=== PATIENT | male | born 1960 | race Caucasian/White ===

== ENCOUNTER 2020-06-14 07:54 | Outpatient (REF) | payer OTHER, SELFPAY | END 2020-06-14 07:55 | disposition home or self-care (01) | LOC: HO.BBR 07:54 | PROVIDERS: Visit Provider Specialist | DX: Z13.89 Encounter for screening for other disorder (principal) ==

== ENCOUNTER 2020-09-14 13:27 | Outpatient (REF) | payer OTHER, SELFPAY | END 2020-09-14 13:28 | disposition home or self-care (01) | LOC: HO.BBR 13:27 | PROVIDERS: Visit Provider Specialist | DX: Z13.89 Encounter for screening for other disorder (principal) ==

== ENCOUNTER 2020-12-05 08:07 | Outpatient (REF) | payer OTHER, SELFPAY | END 2020-12-05 08:08 | disposition home or self-care (01) | LOC: HO.BBR 08:07 | PROVIDERS: Visit Provider Specialist | DX: Z13.89 Encounter for screening for other disorder (principal) ==

== ENCOUNTER 2021-06-20 10:47 | Outpatient (REF) | payer OTHER, SELFPAY | END 2021-06-20 10:48 | disposition home or self-care (01) | LOC: HO.BBR 10:47 | PROVIDERS: Visit Provider Specialist | DX: Z13.89 Encounter for screening for other disorder (principal) ==

== ENCOUNTER 2022-05-06 13:15 | Outpatient (REF) | payer OTHER, SELFPAY | END 2022-05-06 13:16 | disposition home or self-care (01) | LOC: HO.BBR 13:15 | PROVIDERS: Visit Provider Specialist | DX: Z13.89 Encounter for screening for other disorder (principal) ==

== ENCOUNTER 2022-12-18 08:03 | Outpatient (REF) | payer BC, SELFPAY | END 2022-12-18 08:04 | disposition home or self-care (01) | LOC: HO.BBR 08:03 | PROVIDERS: Visit Provider Specialist | DX: Z13.89 Encounter for screening for other disorder (principal) ==

== ENCOUNTER 2023-08-25 13:54 | Outpatient (REF) | payer BC, SELFPAY | END 2023-08-25 13:55 | disposition home or self-care (01) | LOC: HO.BBR 13:54 | PROVIDERS: Visit Provider Student in an Organized Health Care Education/Training Program | DX: Z13.89 Encounter for screening for other disorder (principal) ==

== ENCOUNTER 2024-01-25 11:49 | Outpatient (REF) | payer BC, SELFPAY | END 2024-01-25 11:50 | disposition home or self-care (01) | LOC: HO.BBR 11:49 | PROVIDERS: Visit Provider Specialist | DX: Z13.89 Encounter for screening for other disorder (principal) ==

== ENCOUNTER 2024-05-30 11:56 | Outpatient (REF) | payer BC, SELFPAY ==
--- OUTSIDE RECORDS SUMMARY | 2024-05-30 12:00 | XMS_ITS ---
Author Name [facility] Organization Unknown Results Test Name/Text Value Interpretation Date Range Source ALBUMIN 3.7g/dL Normal [id number] 3.4 - 5 [facility] SODIUM 141mmol/L Normal [id number] 136 - 145 [facility] GLUCOSE 113mg/dL Above high normal [id number] 74 - 100 [facility] BUN 14mg/dL Normal 7 - 18 [facility] CALCIUM 8.9mg/dL Normal [id number] 8.5 - 10.1 [facility] BILIRUBIN,TOTAL 0.5mg/dL Normal 0.2 - 1 [facility] CHL[facility] 110mmol/L Above high normal [id number] 98 - 107 [facility] POTASSIUM SERUM 4.3mmol/L Normal [id number] 3.5 - 5.1 C [facility] CO2 27mmol/L Normal [id number] 21 - 32 [facility] ALKALINE PHOSPHATASE 85U/L Normal [id number] 50 - 1 36 [facility] AST (SGOT) 9U/L Below low normal [id number] 15 - 37 [facility] GLOBULIN 3.2g/dL Normal [id number] 2.4 - 4.2 [facility] A/G RATIO 1.2g/dL Normal [facility] ALT (SGPT) 34U/L Normal [id number] 12 - 78 [facility] BUN/CREAT.RATIO 14.3 Normal [id number] C [facility] CREATININE 0.98mg/dL Normal 0.55 - 1.3 [facility]H PROTEIN, TOTAL 6.9g/dL Normal [id number] 6.4 - 8.2 CT [facility] GFRE 83 Normal 60 - [facility] FERRITIN 45ng/mL Normal [id number] 26 - 388 [facility] LDH 171U/L Normal [id number] 87 - 241 [facility] WBC 5.1K/uL Normal [id number] 3.7 - 10.3 [facility] ABSOLUTE GRANULOCYTES 3K/uL Normal [id number] 2.2 - 7.3 [facility] ABSOLUTE BASO 0.1K/uL Normal [id number] 0 - 0.2 [facility] IMMATURE GRANULOCYTES 0% Normal [id number] 0 - 0 .45 [facility] NUCLEATED RBC 0% Normal [id number] 0 - 0.2 [facility] MCH 33PG Normal [id number] 27 - 34 [facility] MONOCYTES 8% Normal [id number] 0 - 12 [facility] ABSOLUTE IMMATURE GRANULOCYTES 0K/uL Normal [id number] 0 - 0.3 [facility] HGB 16.3g/dL Normal [id number] 13.5 - 18 [facility] RBC 4.88M/uL Normal [id number] 4.3 - 6 [facility] EOSINOPHILS 3% Normal [id number] 0 - 6 [facility] MMH MPV 10fL Normal [id number] 8 - 12 [facility] ABSOLUTE MONOS 0.4K/uL Normal [id number] 0.2 - 1.5 CT [facility] BASOPHILS 1% Normal [id number] 0 - 2 [facility] MCV 93fL Normal [id number] 83 - 102 [facility] HCT 45.4% Normal [id number] 40 - 52 [facility] ABSOLUTE LYMPHS 1.5K/uL Normal [id number] 1.5 - 4.9 C [facility] GRANULOCYTES 59% Normal [id number] 23 - 78 [facility] ABSOLUTE EOS 0.1K/uL Normal [id number] 0 - 0.7 [facility] LYMPHS 29% Normal [id number] 16 - 50 [facility] RDW 12.3% Normal [id number] 11.1 - 13.3 [facility] PLATELET COUNT 192K/uL Normal [id number] 150 - 480 [facility] MCHC 35.9g/dL Normal [id number] 31 - 36 [facility] ABSOLUTE NUCLEATED RBC 0K/uL Normal [id number] 0 - 0.012 [facility] PATIENT FASTING? NO Normal [id number] [facility] COMMENT * Normal [id number] [facility] Hgb A1c MFr Bld HPLC 4.8% Normal [id number] - 5.7 [facility] DIFFERENTIAL TYPE AUTOMATED Normal [id number] [facility] NEUTROPHILS NFR BLD AUTO 36.7% Below low normal [id number] 44 - 74 [facility] BASOPHILS NFR BLD AUTO 1.4% Normal [id number] 0 - 2 [facility] MONOCYTES NFR BLD AUTO 6.6% Normal [id number] 2 - 12 [facility] HCT VFR BLD AUTO 46.5% Normal [id number] 40 - 54 [facility] MONOCYTES NO. BLD AUTO 0.2K/uL Normal [id number] 0 - 0.8 [facility] RDW RBC AUTO RTO 13.1% Normal [id number] 12.1 - 17. 7 [facility] PLATELET NO. BLD AUTO 201K/uL Normal [id number] 150 - 450 [facility] EOSINOPHIL NO. BLD AUTO 0.2K/uL Normal [id number] 0 - 0.5 [facility] RBC NO. BLD AUTO 4.88M/uL Normal [id number] 4.7 - 6 [facility] MCH RBC QN AUTO 34.2pg Above high normal [id number] 25 - 33 [facility] MCHC RBC AUTO MCNC 35.9g/dL Normal [id number] 32 - 36 [facility] HGB BLD MCNC 16.7g/dL Normal [id number] 13.5 - 18 [facility] BASOPHILS IN BLOOD BY AUTOMATED COUNT 0.1K/uL Normal [id number] 0 - 0.2 [facility] WBC NO. BLD AUTO 3.8K/uL Below low normal [id number] 4 - 10.5 [facility] EOSINOPHIL NFR BLD AUTO 6% Normal [id number] 0 - 6 [facility] LYMPHOCYTES NFR BLD AUTO 49.3% Above high normal [id number] 20 - 48 [facility] MCV RBC AUTO 95.3fL Normal [id number] 78 - 100 [facility] NEUTROPHILS NO. BLD AUTO 1.4K/uL Below low normal [id number] 1.8 - 7.8 [facility] LYMPHOCYTES NO. BLD AUTO 1.9K/uL Normal [id number] 1 - 3.2 [facility] PMV BLD AUTO 8.8fL Normal [id number] 7.4 - 11.4 [facility] TSH SerPl DL<=0.005 mIU/L-aCnc 0.67uIU/mL Normal [id number] 0.45 - 5.33 [facility] PSA SERPL-MCNC 1.9ng/mL Normal [id number] 0 - 4 [facility] LDLc SerPl Calc-mCnc 77mg/dL Normal [id number] 50 - 1 30 [facility] TRIGL SERPL-MCNC 138mg/dL Normal [id number] - 150 [facility] CHOLEST SERPL-MCNC 167mg/dL Normal [id number] 0 - 200 [facility] HDLC SERPL-MCNC 62mg/dL Normal [id number] 32 - 70 [facility] CREAT SERPL MCNC 0.8mg/dL Normal [id number] 0.7 - 1.3 [facility] BILIRUB SERPL MCNC 0.6mg/dL Normal [id number] 0.3 - 1 [facility] AST SERPL CCNC 11U/L Normal [id number] 5 - 40 [facility] Glomerular filtration rate/1.73 sq M. predicted 101 Normal [id number] 60 - [facility] HCO3 SER SCNC 31mmol/L Normal [id number] 24 - 32 [facility] POTASSIUM SERPL SCNC 4.1mmol/L Normal [id number] 3.5 - 5.1 [facility] ANION GAP SERPL SCNC 9mmol/L Normal [id number] 5 - 14 [facility] PROT SERPL MCNC 6.8g/dL Normal [id number] 6.4 - 8.5 C [facility] CALCIUM SERPL MCNC 9.2mg/dL Normal [id number] 8.4 - 10 .2 [facility] ALP SERPL-CCNC 87U/L Normal [id number] 34 - 104 [facility] SODIUM SERPL SCNC 142mmol/L Normal [id number] 135 - 145 [facility] GLUCOSE SERPL MCNC 76mg/dL Normal [id number] 70 - 199 [facility] ALBUMIN SERPL BCG MCNC 4.6g/dL Normal [id number] 3.5 - 5 [facility] CHLORIDE SERPL SCNC 102mmol/L Normal [id number] 98 - 10 7 [facility] ALT SERPL CCNC 25U/L Normal [id number] 7 - 52 [facility] BUN SERPL MCNC 9mg/dL Normal [id number] 9 - 20 [facility] URATE SERPL MCNC 5.4mg/dL Normal [id number] 3.5 - 8.5 [facility] FERRITIN 144ng/mL Normal [id number] 26 - 388 [facility] WBC 4.1K/uL Normal [id number] 3.7 - 10.3 [facility] MH ABSOLUTE GRANULOCYTES 1.8K/uL Below low normal [id number] 2.2 - 7.3 [facility] ABSOLUTE BASO 0K/uL Normal [id number] 0 - 0.2 [facility] IMMATURE GRANULOCYTES 0% Normal [id number] 0 - 0 .45 [facility] NUCLEATED RBC 0% Normal [id number] 0 - 0.2 [facility] MCH 34PG Normal [id number] 27 - 34 [facility] H MONOCYTES 14% Above high normal [id number] 0 - 12 [facility] ABSOLUTE IMMATURE GRANULOCYTES 0K/uL Normal [id number] 0 - 0.3 [facility] HGB 16.8g/dL Normal [id number] 13.5 - 18 [facility] RBC 4.92M/uL Normal [id number] 4.3 - 6 [facility] EOSINOPHILS 3% Normal [id number] 0 - 6 [facility] MMH MPV 10fL Normal [id number] 8 - 12 [facility] ABSOLUTE MONOS 0.6K/uL Normal [id number] 0.2 - 1.5 CT [facility] BASOPHILS 1% Normal [id number] 0 - 2 [facility] MCV 93fL Normal [id number] 83 - 102 [facility] HCT 45.5% Normal [id number] 40 - 52 [facility] ABSOLUTE LYMPHS 1.6K/uL Normal [id number] 1.5 - 4.9 C [facility] GRANULOCYTES 45% Normal [id number] 23 - 78 [facility] ABSOLUTE EOS 0.1K/uL Normal 0 - 0.7 [facility] LYMPHS 38% Normal 16 - 50 [facility] RDW 12.1% Normal 11.1 - 13.3 [facility] MMH PLATELET COUNT 192K/uL Normal 150 - [address] [facility] MCHC 36.9g/dL Above high normal 31 - 36 [facility] ABSOLUTE NUCLEATED RBC 0K/uL Normal 0 - 0.012 [facility] COMMENT * Normal [facility] H FERRITIN 89ng/mL Normal 26 - 388 [facility] WBC 5.1K/uL Normal 3.7 - 10.3 [facility] MH ABSOLUTE GRANULOCYTES 2.5K/uL Normal 2.2 - 7.3 [facility] ABSOLUTE BASO 0.1K/uL Normal 0 - 0.2 [facility] IMMATURE GRANULOCYTES 0% Normal 0 - 0 .45 [facility] NUCLEATED RBC 0% Normal 0 - 0.2 [facility] MCH 34PG Normal 27 - 34 [facility] H MONOCYTES 8% Normal 0 - 12 [facility] ABSOLUTE IMMATURE GRANULOCYTES 0K/uL Normal 0 - 0.3 [facility] HGB 16.8g/dL Normal 13.5 - 18 [facility] RBC 4.94M/uL Normal 4.3 - 6 [facility] EOSINOPHILS 4% Normal 0 - 6 [facility] MMH MPV 10fL Normal 8 - 12 [facility] ABSOLUTE MONOS 0.4K/uL Normal 0.2 - 1.5 CT [facility] BASOPHILS 1% Normal 0 - 2 [facility] MCV 92fL Normal 83 - 102 [facility] HCT 45.4% Normal 40 - 52 [facility] ABSOLUTE LYMPHS 1.9K/uL Normal 1.5 - 4.9 C [facility] GRANULOCYTES 50% Normal 23 - 78 [facility] ABSOLUTE EOS 0.2K/uL Normal 0 - 0.7 [facility] LYMPHS 37% Normal 16 - 50 [facility] RDW 12.3% Normal 11.1 - 13.3 [facility] MMH PLATELET COUNT 197K/uL Normal 150 - 480 [facility] MCHC 37g/dL Above high normal 31 - 36 [facility] ABSOLUTE NUCLEATED RBC 0K/uL Normal 0 - 0.012 [facility] COMMENT * Normal [facility] History of Medication Use Medication Directions Dispensed Refills Start Date End Date Stat Multiple Vitamins-Minerals (MULTIVITAMIN GUMMIES MENS PO) Multivitamins CAPS Refills: 0 Active 01/30/2024 active sildenafil (VIAGRA) 100 MG tablet TAKE ONE TABLET BY MOUTH ONE HOUR PRIOR TO SEXUAL ACTIVITY ON AN EMPTY STOMACH FOR ERECTILE DYSFUNCTION DIRECTED 01/30/2024 active Influenza Vac Split Quad (FLUZONE, FLUARIX, FLULAVAL, AFLURIA QUADRIVALENT) 0.5 ML injection Fluzone Quad (PF) 60 mcg (15 mcg x 4)/0.5 mL IM syringe PHARMACY ADMINISTERED 10/08/2023 active tadalafil (CIALIS) 5 mg tablet TAKE ONE TABLET BY MOUTH ONCE DAILY NEEDED FOR ERECTILE DYSFUNCTION 02/08/2023 active Cholecalciferol (VITAMIN D3) 2000 UNITS Cap capsule Vitamin D3 50 mcg (2,000 unit) capsule Take by oral route. 05/08/2022 active Influenza Vac Split Quad (FLUZONE, FLUARIX, FLULAVAL, AFLURIA QUADRIVALENT) 0.5 ML injection Fluzone Quad (PF) 60 mcg (15 mcg x 4)/0.5 mL IM syringe PHARMACY ADMINISTERED 11/28/2022 active sildenafil (VIAGRA) 100 MG tablet Take 1 tablet (100 mg total) by mouth daily as needed for erectile dysfunction. Take 1 hour prior to sexual activity on an empty stomach 05/08/2022 aborted diazepam (VALIUM) 5 MG tablet diazepam 5 mg tablet 05/08/2022 active testosterone (ANDROGEL) 20.25 mg/pump (1.62%) transdermal gel Place 2 Pump on the skin every morning. Max Daily Amount: 2 Pump 09/11/2022 aborted sildenafil (VIAGRA) 100 MG tablet TAKE ONE TABLET BY MOUTH ONE HOUR PRIOR TO SEXUAL ACTIVITY ON AN EMPTY STOMACH FOR ERECTILE DYSFUNCTION DIRECTED 06/05/2023 active cetirizine (ZyrTEC) 10 MG tablet every 24 hours. 05/08/2022 active Testosterone 1.62 % Gel PLACE 2 PUMPS ON THE SKIN EVERY MORNING. MAX DAILY AMOUNT : 2 PUMPS 03/07/2023 active tadalafil (CIALIS) 5 mg tablet Take 1 tablet (5 mg total) by mouth daily as needed for erectile dysfunction. 05/08/2022 aborted Influenza Vac Split Quad (FLUZONE, FLUARIX, FLULAVAL, AFLURIA QUADRIVALENT) 0.5 ML injection Fluzone Quad (PF) 60 mcg (15 mcg x 4)/0.5 mL IM syringe PHARMACY ADMINISTERED 02/08/2023 active sildenafil (REVATIO) 20 MG tablet sildenafil (pulmonary hypertension) 20 mg tablet Take 3 tablets by mouth one hour prior to sex as needed. 05/08/2022 active Multiple Vitamins-Minerals (Multivitamin Men 50+) Tab Take by mouth. 08/17/2022 active albuterol (PROVENTIL HFA; VENTOLIN HFA) 108 (90 Base) MCG/ACT inhaler Ventolin HFA 90 mcg/actuation aerosol inhaler 05/08/2022 active Influenza Vac Split Quad (FLUZONE, FLUARIX, FLULAVAL, AFLURIA QUADRIVALENT) 0.5 ML injection Fluzone Quad (PF) 60 mcg (15 mcg x 4)/0.5 mL IM syringe PHARMACY ADMINISTERED 05/08/2022 active Problems Problem Status Onset Date Problem Type Date of Resolution Source Hypogonadism in male active EncounterDiagnosisA ct [facility] Perennial allergic rhinitis active 2020-05-29 ProblemAct [facility] Primary erectile dysfunction active 2020-05-29 ProblemAct [facility] Anxiety active 2021-06-13 ProblemAct [facility] Hemochromatosis active 2008-09-[address] [facility] Immunizations Vaccine Date Source Lot Number Status Influenza Quad (Flucelvax) 0 .5mL >6mon Vial (ccIIV4) 06/13/2021 [facility] [id number] completed
== END 2024-05-30 11:57 | disposition home or self-care (01) ==
LOC: HO.BBR 11:56
PROVIDERS: Visit Provider Specialist
DX: Z13.89 Encounter for screening for other disorder (principal)

== ENCOUNTER 2024-08-29 11:47 | Outpatient (REF) | payer BC, SELFPAY | END 2024-08-29 11:48 | disposition home or self-care (01) | LOC: HO.BBR 11:47 | PROVIDERS: Visit Provider Specialist | DX: Z13.89 Encounter for screening for other disorder (principal) ==

== ENCOUNTER 2025-04-03 13:44 | Outpatient (REF) | payer BC, SELFPAY ==
--- OUTSIDE RECORDS SUMMARY | 2025-04-03 17:25 | XMS_ITS | Encounter Summary ---
Author Organization Formerly [facility] Address [address] [place] [address] Care Team Providers Care Mixer Whipped Topping Name Role Phone Morro Sanchez MD Primary Care Provider [phone] Encounter Details Date Type Department Care Team (Late Contact Info) Description 05/31/2024 Scanned Document [facility] Urologic Surgery [place] [phone] Bart Connell MD [address] [place] [address] Social History Tobacco Use Types Packs/Day Years Used Date Smoking Tobacco: Never Smokeless Tobacco: Never Alcohol Use Standard Drinks/Week Comments Yes 0 (1 standard drink = 0.6 oz pur e alcohol) Occasional Sex and Gender Information Value Date Recorded Sex Assigned at Male 10/12/2023 8:57 AM EDT Legal Sex Male 2:50 AM EDT Gender Identity Male 10/12/2023 8:57 AM EDT Sexual Orientation Heterosexual (straight) 10/11 8:57 AM EDT documented as of this encounter Plan of Treatment Upcoming Encounters Date Type Department Care Team (Late Contact Info) Description 10/19/2025 2:45 PM EDT Office Visit [facility] Urolog[facility] Surgery [address] [phone] Bart Connell MD [address] [place] [address] documented as of this encounter Visit Diagnoses Not on filedocumented in this encounter Care Teams Mixer Whipped Topping Relationship Specialty Start Date End Date Morro Sanchez MD [address] [place] [phone] PCP - General Internal Medicine 04/24/21 documented as of this encounter
--- OUTSIDE RECORDS SUMMARY | 2025-04-03 17:25 | XMS_ITS | Clinical Summary ---
Author Organization [facility] Address [address] [place] [address] Care Team Providers Care Pipe Bowl Paint Trimmer Name Role Phone Morro Sanchez MD Primary Care Provider [phone] Allergies Active Allergy Reactions Criticality Noted Date Comments Pollen Extract Medium 01/21/2022 Other reaction(s): Unknown/Patient and Family Unable to Define Seasonal 01/21/2022 Medications Medication Sig Dispensed Refills Start Date End Date Status GLUCOSAMINE CHONDROITIN COMPLX PO Glucosamine Chondroitin Complx Oral Capsule Refills: 0 Active 0 Active Multiple Vitamins-Minerals (MULTIVITAMIN GUMMIES MENS PO) Multivitamins CAPS Refills: 0 Active 0 Active sildenafil (VIAGRA) 100 MG tablet TAKE ONE TABLET BY MOUTH ONE HOUR PRIOR TO SEXUAL ACTIVITY ON AN EMPTY STOMACH FOR ERECTILE DYSFUNCTION DIRECTED 0 08/08/2022 Active Active Problems Problem Noted Date Diagnosed Date Post-traumatic osteoarthritis of right knee 08/06 Anxiety 06/13/2021 Primary erectile dysfunction 05/29/2020 Perennial allergic rhinitis 05/29/2020 Hemochromatosis 09/03/2008 Immunizations Name Administration Dates Next Due Covid-19 (Moderna 12+) 100mc g/0.5mL dosage 11/26/2021,05/03/2021,09/18/2020,08/21 Influenza Quad (Fluarix/Fluzone/FluLaval) 0.5mL (SD-IIV4) 03/01/2020 Influenza Quad (Flublok) 0.5 mL >18 Yrs (RIV4) 04/14/2019 Influenza Quad (Flucelvax) 0 .5mL >6mon Vial (ccIIV4) 06/13/2021 Pneumococcal Polysaccharide PPSV23 08/21/2015 Shingrix Vaccine (Zoster Recombinant) 07/30/2020 ,05/29/2020 Tdap 08/24/2023,05/11/2014 Family History Medical History Relation Name Comments Colon cancer Mother Relation Name Status Comments Mother Social History Tobacco Use Types Packs/Day Years Used Date Smoking Tobacco: Never Smokeless Tobacco: Never Tobacco Cessation:Counseling Given: Not Answered Alcohol Use Standard Drinks/Week Comments Yes 0 (1 standard drink = 0.6 oz pur e alcohol) moderatly Sex and Gender Information Value Date Recorded Sex Assigned at Not on file Gender Identity Not on file Sexual Orientation Not on file Job Start Date Occupation Industry Not on file Not on file Not on file Last Filed Vital Signs Vital Sign Reading Time Taken Comments Blood Pressure 120/82 09/03/2022 10:02 AM EDT Pulse 78 08/24/2023 2:13 PM EDT Temperature 36.3 C (97.4 F) 01/21/2022 1:26 PM EDT Respiratory Rate 16 08/24/2023 2:13 PM EDT Oxygen Saturation 95% 08/24/2023 2:13 PM EDT Inhaled Oxygen Concentration - - Weight 85.8 kg (189 lb 3.2 oz) 08/24/2023 2:13 P M EDT Height 188 cm (6' 2 ) 08/24/2023 2:13 PM EDT Body Mass Index 24.29 08/24/2023 2:13 PM EDT Plan of Treatment Health Maintenance Due Date Last Done Comments Colon Cancer Screening (Colonoscopy) 10/27/2007 BMI Counseling 08/23/2024 08/24/2023, 08/06, 08/19/2022, Additional history exists Depression Screening 08/23/2024 08/24/2023 Preventative Health Evaluation 08/23/2024 08/24/2023, 08/24/2023, 08/19/2022, Additional history exists COVID-19 Vaccine ( season) 2025 11/26/2021, 05/03/2021, 09/18/2020, Additional history exists Influenza Vaccine (#1) 2025 2, 03/01/2020, 04/14/2019 DTap / Tdap / Td (3 - Td or Tdap) 08/23/2033 08/24/2023, 05/11/2014 RSV Adult > 60+ Yrs or (1 - 1-dose 75+ series) 2037 Pneumococcal Vaccine Aged Out 08/21/2015 No long er eligible based on patient's age to complete this topic Hepatitis C Screening Completed 12/12/2016 Shingrix-Zoster Vaccine Completed 07/30/2020, 05/29 Hepatitis B Vaccines Aged Out No long er eligible based on patient's age to complete this topic RSV Ped < 20 months Aged Out No longe r eligible based on patient's age to complete this topic Care Teams Pipe Bowl Paint Trimmer Relationship Specialty Start Date End Date Morro Sanchez MD [address] [facility] [address] [facility] [place] [address] PCP - General Family Medicine 02/03/17
--- OUTSIDE RECORDS SUMMARY | 2025-04-03 17:25 | XMS_ITS | Clinical Summary ---
Author Organization [facility] Address [address] [place] [address] Phone Care Team Providers Care Fisher Trammel Net Name Role Phone Morro Sanchez MD Primary Care Provider [phone] Allergies Active Allergy Reactions Criticality Noted Date Comments Pollen Extracts 01/21/2022 Medications glucosamine HCl/chondroiti n gunderson (GLUCOSAMINE-C HONDROITIN ORAL) Glucosamine Chondroitin Complx Oral Capsule Refills: 0 Active Active MULTIVITAMIN ORAL Multivitamins CAPS Refills: 0 Active Active Active Problems Problem Noted Date Diagnosed Date Anxiety 06/13/2021 Perennial allergic rhinitis 05/29/2020 Primary erectile dysfunction 05/29/2020 Hemochromatosis 09/03/2008 Immunizations Immunization Administration Dates Next Due Influenza Quadravalent, MDCK , 0.5ml, with preservative (Flucelvax) 6mo and older 06/13/2021 Influenza Quadravalent, arianna mbinant, 0.5ml, preservative free (Flublok) 18yo and older 04/14/2019 Pneumococcal polysaccharide 23 valent (Pneumovax 23) 2yo and older 08/21/2015 Tdap Tetanus diptheria acell ular pertussis (Boostrix; Adacel) 7yo and older 05/11/2014 Zoster recombinant (Shingrix) 19yo and older ,05/29/2020 Surgical History Surgery Date Site/Laterality Comments KNEE SURGERY PROCEDURE:KNEE SURGERY Medical History Medical History Date Comments Hemochromatosis DX:Hemochromatos is Family History Medical History Relation Name Comments Colon cancer Mother Relation Name Status Comments Mother Social History Tobacco Use Types Packs/Day Years Used Date Smoking Tobacco: Never Smokeless Tobacco: Never Alcohol Use Standard Drinks/Week Comments Yes 0 (1 standard drink = 0.6 oz pur e alcohol) Sex and Gender Information Value Date Recorded Sex Assigned at Not on file Legal Sex Male 11:37 AM EST Gender Identity Not on file Sexual Orientation Not on file Obstetrics History Last Filed Vital Signs Vital Sign Reading Time Taken Comments Blood Pressure 120/82 09/03/2022 10:02 AM EDT Pulse 78 08/24/2023 2:13 PM EDT Temperature - - Respiratory Rate - - Oxygen Saturation - - Inhaled Oxygen Concentration - - Weight 85.8 kg (189 lb 3.2 oz) 08/24/2023 2:13 P M EDT Height 188 cm (6' 2 ) 08/24/2023 2:13 PM EDT Body Mass Index 24.29 08/24/2023 2:13 PM EDT Plan of Treatment Health Maintenance Due Date Last Done Comments Colorectal Cancer Screening: Colonoscopy 1962 Pneumococcal Vaccine: 50+ Years (2 of 2 - PCV) 08/20/2016 08/21/2015 HIV Screening 05/16/2022 Social Influencers of Health Screening 05/16/2022 Depression Screening 06/08/2024 Influenza Vaccine (#1) 2025 , 02/07/2023, 05/09/2022, Additional history exists Hypertension/CHF/CAD Annual BMP Blood Test 08/18/2025 08/18/2024, 08/17/2023, 08/11/2022, Additional history exists Cholesterol Screening (Lipid Panel) 08/18/2029 08/18/2024, 08/17/2023, 08/11/2022, Additional history exists DTaP,Tdap,and Td Vaccines (4 - Td or Tdap) 08/23/2033 08/24/2023, 02/07/2023, 05/11/2014 Hepatitis C Screening Completed 12/12/2016 Zoster Vaccines Completed 07/30/2020, 05/29/2020 RSV Immunization Adult Patients Completed 04/09/2023 COVID-19 Vaccine Completed 02/06/2024, 02/2023, 02/20/2022, Additional history exists HIB Vaccines Aged Out No longer eligi ble based on patient's age to complete this topic HPV Vaccines Aged Out No longer eligi ble based on patient's age to complete this topic Hepatitis A Vaccines Aged Out No long er eligible based on patient's age to complete this topic Hepatitis B Vaccines Aged Out No long er eligible based on patient's age to complete this topic IPV Vaccines Aged Out No longer eligi ble based on patient's age to complete this topic MMR Vaccines Aged Out No longer eligi ble based on patient's age to complete this topic Meningococcal ACWY Vaccine Aged Out N o longer eligible based on patient's age to complete this topic Meningococcal B Vaccine Aged Out No l onger eligible based on patient's age to complete this topic RSV Immunization Patients Under 20 months Aged Out No longer eligible based on patient's age to complete this topic Varicella Vaccines Aged Out No longer eligible based on patient's age to complete this topic Procedures Procedure Name Priority Date/Time Associated Diagnosis Comments COMPREHENSIVE METABOLIC PANEL Routine 08/18/2024 7:25 AM EDT Routine general medical examination at a [facility] LIPID PANEL WITH REFLEX TO DIRECT LDL Routine 08/18/2024 7:25 AM EDT Routine general medical examination at a [facility] HEPATITIS C SCREENING Routine 12/12/2016 from Last 3 Months or Most Recently Relevant to Health Maintenance Results * Lipid panel with reflex to direct LDL (08/18/2024 7:25 AM EDT) Cholesterol 170 0 - 200 mg/dL LAB CHEMISTRY METHOD 08/18/2024 2:50 PM EDT [facility] Triglycerides 81 <150 mg/dL LAB CHEMISTRY METHOD 08/18/2024 2:50 PM EDT [facility] HDL 68 32 - 70 mg/dL LAB CHEMISTRY METHOD 08/18/2024 2:50 PM EDT [facility] LDL Calculated 86 50 - 130 mg/dL LAB CHEMISTRY METHOD 08/18/2024 2:50 PM EDT [facility] VLDL Cholesterol [place] 16.2 mg/dL LAB CHEMISTRY METHOD 08/18/2024 2:50 PM EDT [facility] Comment:No established refer ence range. Blood Venous blood specimen / Unknown Venipuncture / Unknown 08/18/2024 7:25 AM EDT 08/18/2024 7:25 AM EDT us Morro Sanchez MD LAB BLOOD ORDERABLES Final Res ult [facility] [address] [place] [address], [place] [phone] * Comprehensive metabolic panel (08/18/2024 7:25 AM EDT) Sodium 140 135 - 145 mmol/L LAB CHEMISTRY METHOD 08/18/2024 2:50 PM EDT [facility] Potassium 4.5 3.5 - 5.1 mmol/L LAB CHEMISTRY METHOD 08/18/2024 2:50 PM EDT [facility] Chloride 102 98 - 107 mmol/L LAB CHEMISTRY METHOD 08/18/2024 2:50 PM EDT [facility] CO2 30 24 - 32 mmol/L LAB CHEMISTRY METHOD 08/18/2024 2:50 PM EDT [facility] Anion Gap 8 5 - 14 LAB CHEMISTRY METHOD 08/18/2024 2:50 PM EDT [facility] Glucose 92 70 - 99 mg/dL LAB CHEMISTRY METHOD 08/18/2024 2:50 PM EDT [facility] BUN 11 9 - 20 mg/dL LAB CHEMISTRY METHOD 08/18/2024 2:50 PM EDT [facility] Creatinine 0.90 0.70 - 1.30 mg/dL LAB CHEMISTRY METHOD 08/18/2024 2:50 PM EDT [facility] eGFR 97 >=60 mL/min/1. 73m2 LAB CHEMISTRY METHOD 08/18/2024 2:50 PM EDT [facility] Comment:Calculation based on the Chronic Kidney Disease Epidemiology Collaboration (CKD-EPI) equation refit without adjustment for race. BUN/Creatinine Ratio 12.2 12.0 - 20.0 LAB CHEMISTRY METHOD 08/18/2024 2:50 PM EDT [facility] Calcium 9.7 8.4 - 10.2 mg/dL LAB CHEMISTRY METHOD 08/18/2024 2:50 PM EDT [facility] AST (SGOT) 11 5 - 40 unit/L LAB CHEMISTRY METHOD 08/18/2024 2:50 PM EDT [facility] ALT (SGPT) 20 7 - 52 unit/L LAB CHEMISTRY METHOD 08/18/2024 2:50 PM EDT [facility] Alkaline Phosphatase 79 34 - 104 unit/L LAB CHEMISTRY METHOD 08/18/2024 2:50 PM EDT [facility] Total Protein 6.4 6.4 - 8.5 g/dL LAB CHEMISTRY METHOD 08/18/2024 2:50 PM EDT [facility] Albumin 4.5 3.5 - 5.0 g/dL LAB CHEMISTRY METHOD 08/18/2024 2:50 PM EDT [facility] Total Bilirubin 0.8 0.3 - 1.0 mg/dL LAB CHEMISTRY METHOD 08/18/2024 2:50 PM EDT [facility] Blood Venous blood specimen / Unknown Venipuncture / Unknown 08/18/2024 7:25 AM EDT 08/18/2024 7:25 AM EDT Morro Sanchez MD LAB BLOOD ORDERABLES Final Res ult [facility] [address] [place] [address], [place] [phone] * Hepatitis C Screening (12/12/2016) Hepatitis C Screening abstracted Historical Provider HEALTH MAINTENANCE Final Result from Last 3 Months or Most Recently Relevant to Health Maintenance Insurance [facility] Care Teams Fisher Trammel Net Relationship Specialty Start Date End Date Morro Sanchez MD PCP - General Family Medicine 02/03/17
--- OUTSIDE RECORDS SUMMARY | 2025-04-03 17:25 | XMS_ITS | Encounter Summary ---
Author Organization [facility] Address [address] [place] [address] Care Team Providers Care Tc Operator Name Role Phone Morro Sanchez MD Primary Care Provider [phone] Encounter Details Date Type Department Care Team (Late Contact Info) Description 03/27/2025 Scanned Document [facility] [id number] [address] [place] [phone] Urology, Scan Social History Tobacco Use Types Packs/Day Years [...] Description 10/19/2025 2:45 PM EDT Office Visit [facility] Urologic Surgery [place] [address] [phone] Bart Connell MD [address] [place] [address] documented as of this encounter Visit Diagnoses Not on filedocumented in this encounter Care Teams Tc Operator Relationship Specialty Start Date End Date Morro Sanchez MD [address] [place] [address] PCP - General Internal Medicine 04/24/21 documented as of this encounter
--- OUTSIDE RECORDS SUMMARY | 2025-04-03 17:25 | XMS_ITS | Clinical Summary ---
Author Organization [facility] Address [address] [place] [address] Care Team Providers Care Zigzag Topstitcher Name Role Phone Morro Sanchez MD Unavailable [phone] Morro Sanchez MD Primary Care Provider [phone] Allergies No known active allergies Medications multivit with minerals/lutei n (MULTIVITAMIN 50 PLUS ORAL) Multivitamins CAPS Refills: 0 Active Active glucosamine-ch ondroitin 500-400 mg tablet Glucosamine Chondroitin Complx Oral Capsule Refills: 0 Active Active Active Problems No known active problems Family History Medical History Relation Comments Parkinsonism Father Relation Status Comments Father Social History Tobacco Use Types Packs/Day Years Used Date Smoking Tobacco: Never Smokeless Tobacco: Never Tobacco Cessation:Counseling Given: Not Answered Alcohol Use Standard Drinks/Week Comments Yes 4 (1 standard drink = 0.6 oz pur e alcohol) Sex and Gender Information Value Date Recorded Sex Assigned at Not on file Legal Sex Male 10:24 AM EST Gender Identity Not on file Sexual Orientation Not on file Last Filed Vital Signs Vital Sign Reading Time Taken Comments Blood Pressure 151/101 10/17/2024 1:06 PM EDT Pulse 71 10/17/2024 1:06 PM EDT Temperature - - Respiratory Rate 16 10/17/2024 1:06 PM EDT Oxygen Saturation 98% 10/17/2024 1:06 PM EDT Inhaled Oxygen Concentration - - Weight 87.1 kg (192 lb) 05/24/2024 2:20 PM EST Height 188 cm (6' 2 ) 05/24/2024 2:20 PM EST Body Mass Index 24.65 05/24/2024 2:20 PM EST Plan of Treatment Health Maintenance Due Date Last Done Comments CT Colonography 1962 Colonoscopy 1962 Colorectal Cancer Screening 1962 FIT-DNA (Cologuard) 1962 FIT 1962 FOBT 1962 Flex Sigmoidoscopy - 5y 1962 HIV Screening 1962 Hepatitis C Screening 1980 Pneumococcal Vaccine, 50+ Years (2 of 2 - PCV) 08/20/2016 08/21/2015 Influenza Vaccine (#1) 2025 , 02/07/2023, 05/09/2022, Additional history exists DTaP,Tdap,and Td Vaccines (4 - Td or Tdap) 08/23/2033 08/24/2023, 02/07/2023, 05/11/2014 Zoster Vaccines Completed 07/30/2020, 05/29/2020 COVID-19 Vaccine Completed 02/06/2024, 02/2023, 02/20/2022, Additional history exists HPV Vaccines Aged Out No longer eligi ble based on patient's age to complete this topic Hepatitis A Vaccines Aged Out No long er eligible based on patient's age to complete this topic MMR Vaccines Aged Out No longer eligi ble based on patient's age to complete this topic Meningococcal Vaccine Aged Out No key daivd eligible based on patient's age to complete this topic Insurance [employer] INSURANCE EXCHANGE - INDIVIDUAL Care Teams Zigzag Topstitcher Relationship Specialty Start Date End Date Morro Sanchez MD [address] [place] [phone] PCP - Insurance Payer PCP 06/08/23 Morro Sanchez MD [address] [place] [phone] PCP - General Family Medicine 05/24/24
--- OUTSIDE RECORDS SUMMARY | 2025-04-03 17:25 | XMS_ITS | Encounter Summary ---
Author Organization [facility] Address [address] [place] [address] Care Team Providers Care Residential Specialist Name Role Phone Morro Sanchez MD Primary Care Provider [phone] Encounter Details Date Type Department Care Team (Late Contact Info) Description 10/20/2024 Scanned Document [facility] Urologic Surgery [place] [phone] Bart Connell MD [address] [place] [address] Social History Tobacco Use Types Packs/Day Years [...] Description 10/19/2025 2:45 PM EDT Office Visit [facility]rolog[facility] Surgery [address] [phone] Bart Connell MD [address] [place] [address] documented as of this encounter Visit Diagnoses Not on filedocumented in this encounter Care Teams Residential Specialist Relationship Specialty Start Date End Date Morro Sanchez MD [address] [place] [phone] PCP - General Internal Medicine 04/24/21 documented as of this encounter
--- OUTSIDE RECORDS SUMMARY | 2025-04-03 17:25 | XMS_ITS | Clinical Summary ---
Author Organization [facility] Address [address] [place] [address] Care Team Providers Care Gui Developer Name Role Phone Morro Sanchez MD Primary Care Provider [phone] Allergies Active Allergy Reactions Criticality Noted Date Comments Pollen Extract Unknown/Patient and Family Unable to Define Medium 01/21/2022 Medications albuterol (PROVENTIL HFA; VENTOLIN HFA) 108 (90 Base) MCG/ACT inhaler Ventolin HFA 90 mcg/actuation aerosol inhaler Active cetirizine (ZyrTEC) 10 MG tablet every 24 hours. Acti ve Cholecalciferol (VITAMIN D3) 2000 UNITS Cap capsule Vitamin D3 50 mcg (2,000 unit) capsule Take by oral route. Active Influenza Vac Split Quad (FLUZONE, FLUARIX, FLULAVAL, AFLURIA QUADRIVALENT) 0.5 ML injection Fluzone Quad (PF) 60 mcg (15 mcg x 4)/0.5 mL IM syringe PHARMACY ADMINISTERED Active diazepam (VALIUM) 5 MG tablet diazepam 5 mg tablet Active Glucosamine-Cho ndroit-Vit C-Mn (Glucosamine Chondr 1500 Complx) Cap Take by mouth. 2 Active Multiple Vitamins-Minera ls (Multivitamin Men 50+) Tab Take by mouth. 2 Active Testosterone 1.62 % GelIndications: Hypogonadism in male PLACE 2 PUMPS ON THE SKIN EVERY MORNING. MAX DAILY AMOUNT : 2 PUMPS 75 g 5 5 Active tadalafil (CIALIS) 5 mg tabletIndicatio ns:Erectile dysfunction due to diseases classified elsewhere TAKE ONE TABLET BY MOUTH EVERY DAY NEEDED FOR ERECTILE DYSFUNCTION 90 tablet 3 5 Active Active Problems No known active problems Encounters Date Type Department Care Team Description 03/27/2025 Scanned Document [facility] [id number] [address] [place] [address], [place] [phone] Urology, Scan 03/13/2025 Telephone [facility] Urologic Surgery [address] [phone] Bart Connell MD 01/24/2025 Telephone [facility] Urologic Surgery [address] [phone] Bart Connell MD 01/23/2025 [facility] Urologic Surgery [address] [phone] Bart Connell MD Other 01/09/2025 Refill [facility] Urologic Surgery [address] [phone] Bart Connell MD Erectile dysfunction due to diseases classified elsewhere from Last 3 Months Social History Tobacco Use Types Packs/Day Years [...] Orientation Heterosexual (straight) 10/11 8:57 AM EDT Last Filed Vital Signs Vital Sign Reading Time Taken Comments Blood Pressure - - Pulse - - Temperature 36.7 C (98 F) 10/09/2021 8:10 AM EDT Respiratory Rate - - Oxygen Saturation - - Inhaled Oxygen Concentration - - Weight 81.6 kg (180 lb) 10/13/2024 2:17 PM EDT Height 188 cm (6' 2 ) 10/13/2024 2:17 PM EDT Body Mass Index 23.11 10/13/2024 2:17 PM EDT Plan of Treatment Upcoming Encounters Date Type Department Care Team (Late st Contact Info) Description 10/19/2025 2:45 PM EDT Office Visit [facility] Urologic Surgery [address] [place] [address] [place] [phone] Bart Connell MD [address] [place] [address] Health Maintenance Due Date Last Done Comments Hepatitis C Virus Screening 1962 HIV Screening 10/27/1975 DTaP/Tdap/Td Vaccines (1 - Tdap) 1981 Colonoscopy 10/27/2007 Pneumococcal Vaccines 50+ (1 of 1 - PCV) 2012 Zoster (Shingles) Vaccine (1 of 2) 2012 Influenza Vaccine 01/06/2025 02/06/2024, , 05/09/2022, Additional history exists RSV Vaccine 50 years and older and Patients (1 - 1-dose 75+ series) 2037 COVID-19 Vaccine Completed 02/06/2024, 02/2023, 02/20/2022, Additional history exists Hepatitis B Vaccines Aged Out No long er eligible based on patient's age to complete this topic Insurance [employer] INDIVIDUAL EXCHANGE PPO BLUE [employer] INDIVIDUAL EXCHANGE PPO Care Teams Gui Developer Relationship Specialty Start Date End Date Morro Sanchez MD [address] [place] [address] PCP - General Internal Medicine 04/24/21
--- OUTSIDE RECORDS SUMMARY | 2025-04-03 17:25 | XMS_ITS ---
Author Name [facility] Organization Unknown Results Test Name/Text Value Interpretation Date Range Source [facility]ost SerPl-mCnc 656.0 ng/dL 11/20/2024 250 - 11 00 [facility] SerPl-sCnc 50.0 nmol/L 11/20/2024 22 - 77 Q [facility] Bioavail SerPl-mCnc 138.1 ng/dL 11/20/2024 110 - 575 [facility] Albumin SerPl-mCnc 4.8 g/dL 11/20/2024 3.6 - 5.1 [facility] Free SerPl-mCnc 63.1 pg/mL 11/20/2024 46 - 224 [facility] CALCIUM 8.9 mg/dL Normal 12/01/2023 8.5 - 10.1 [facility] AST (SGOT) 9.0 U/L Below low normal 12/01/2023 15 - 37 C [facility] GLOBULIN 3.2 g/dL Normal 12/01/2023 2.4 - 4.2 [facility] BILIRUBIN,TOTAL 0.5 mg/dL Normal 12/01/2023 0.2 - 1 [facility] POTASSIUM SERUM 4.3 mmol/L Normal 12/01/2023 3.5 - 5.1 [facility] BUN 14.0 mg/dL Normal 12/01/2023 7 - 18 [facility] PROTEIN, TOTAL 6.9 g/dL Normal 12/01/2023 6.4 - 8.2 [facility] CREATININE 0.98 mg/dL Normal 12/01/2023 0.55 - 1.3 [facility] ALT (SGPT) 34.0 U/L Normal 12/01/2023 12 - 78 [facility] SODIUM 141.0 mmol/L Normal 12/01/2023 136 - 145 [facility] A/G RATIO 1.2 g/dL Normal 12/01/2023 [facility] BUN/CREAT.RATIO 14.3 Normal 12/01/2023 [facility] CO2 27.0 mmol/L Normal 12/01/2023 21 - 32 [facility] ALBUMIN 3.7 g/dL Normal 12/01/2023 3.4 - 5 [facility] ALKALINE PHOSPHATASE 85.0 U/L Normal 12/01/2023 50 - 136 [facility] CHLORIDE 110.0 mmol/L Above high normal 12/01/2023 98 - 107 [facility] GLUCOSE 113.0 mg/dL Above high normal 12/01/2023 74 - 100 [facility] PATIENT FASTING? NO Normal 12/01/2023 [facility] LDH 171.0 U/L Normal 12/01/2023 87 - 241 [facility] FERRITIN 45.0 ng/mL Normal 12/01/2023 26 - 388 [facility] GFRE 83.0 Normal 12/01/2023 60 - [facility] ABSOLUTE MONOS 0.4 K/uL Normal 12/01/2023 0.2 - 1.5 [facility] ABSOLUTE LYMPHS 1.5 K/uL Normal 12/01/2023 1.5 - 4.9 [facility] MPV 10.0 fL Normal 12/01/2023 8 - 12 [facility] HGB 16.3 g/dL Normal 12/01/2023 13.5 - 18 [facility] MCH 33.0 PG Normal 12/01/2023 27 - 34 [facility] ABSOLUTE NUCLEATED RBC 0.0 K/uL Normal 12/01/2023 0 - 0. 012 [facility] GRANULOCYTES 59.0 % Normal 12/01/2023 23 - 78 [facility] BASOPHILS 1.0 % Normal 12/01/2023 0 - 2 [facility] WBC 5.1 K/uL Normal 12/01/2023 3.7 - 10.3 [facility] ABSOLUTE GRANULOCYTES 3.0 K/uL Normal 12/01/2023 2.2 - 7 .3 [facility] ABSOLUTE IMMATURE GRANULOCYTES 0.0 K/uL Normal 12/01/2023 0 - 0.3 [facility] MCV 93.0 fL Normal 12/01/2023 83 - 102 [facility] LYMPHS 29.0 % Normal 12/01/2023 16 - 50 [facility] RBC 4.88 M/uL Normal 12/01/2023 4.3 - 6 [facility] NUCLEATED RBC 0.0 % Normal 12/01/2023 0 - 0.2 [facility]H IMMATURE GRANULOCYTES 0.0 % Normal 12/01/2023 0 - 0.4 5 [facility] ABSOLUTE EOS 0.1 K/uL Normal 12/01/2023 0 - 0.7 [facility] PLATELET COUNT 192.0 K/uL Normal 12/01/2023 150 - 480 [facility] EOSINOPHILS 3.0 % Normal 12/01/2023 0 - 6 [facility] HCT 45.4 % Normal 12/01/2023 40 - 52 [facility] ABSOLUTE BASO 0.1 K/uL Normal 12/01/2023 0 - 0.2 [facility]H MONOCYTES 8.0 % Normal 12/01/2023 0 - 12 [facility] RDW 12.3 % Normal 12/01/2023 11.1 - 13.3 [facility] MCHC 35.9 g/dL Normal 12/01/2023 31 - 36 [facility] COMMENT * Normal 12/01/2023 [facility] URATE SERPL MCNC 5.4 mg/dL Normal 08/17/2023 3.5 - 8.5 [facility] TSH SerPl DL<=0.005 mIU/L-aCnc 0.67 uIU/mL Normal 08/17/2023 0.45 - 5.33 [facility] Hgb A1c MFr Bld HPLC 4.8 % Normal 08/18/2023 - 5.7 [facility] CHOLEST SERPL-MCNC 167.0 mg/dL Normal 08/17/2023 0 - 200 [facility] LDLc SerPl Calc-mCnc 77.0 mg/dL Normal 08/17/2023 50 - 13 0 [facility] TRIGL SERPL-MCNC 138.0 mg/dL Normal 08/17/2023 - 150 [facility] HDLC SERPL-MCNC 62.0 mg/dL Normal 08/17/2023 32 - 70 [facility] PSA SERPL-MCNC 1.9 ng/mL Normal 08/17/2023 0 - 4 [facility] MONOCYTES NO. BLD AUTO 0.2 K/uL Normal 08/17/2023 0 - 0. 8 [facility] HCT VFR BLD AUTO 46.5 % Normal 08/17/2023 40 - 54 [facility] PLATELET NO. BLD AUTO 201.0 K/uL Normal 08/17/2023 150 - 450 [facility] LYMPHOCYTES NFR BLD AUTO 49.3 % Above high normal 08/17/2023 20 - 48 [facility] NEUTROPHILS NO. BLD AUTO 1.4 K/uL Below low normal 08/17/2023 1.8 - 7.8 [facility] EOSINOPHIL NO. BLD AUTO 0.2 K/uL Normal 08/17/2023 0 - 0.5 [facility] MCHC RBC AUTO MCNC 35.9 g/dL Normal 08/17/2023 32 - 36 [facility] EOSINOPHIL NFR BLD AUTO 6.0 % Normal 08/17/2023 0 - 6 [facility] BASOPHILS IN BLOOD BY AUTOMATED COUNT 0.1 K/uL Normal 08/17/2023 0 - 0.2 [facility] RDW RBC AUTO RTO 13.1 % Normal 08/17/2023 12.1 - 17.7 [facility] RBC NO. BLD AUTO 4.88 M/uL Normal 08/17/2023 4.7 - 6 [facility] MCV RBC AUTO 95.3 fL Normal 08/17/2023 78 - 100 [facility] MG DIFFERENTIAL TYPE AUTOMATED Normal 08/17/2023 C [facility] WBC NO. BLD AUTO 3.8 K/uL Below low normal 08/17/2023 4 - 1 0.5 [facility] MCH RBC QN AUTO 34.2 pg Above high normal 08/17/2023 25 - 33 [facility] MONOCYTES NFR BLD AUTO 6.6 % Normal 08/17/2023 2 - 12 [facility] NEUTROPHILS NFR BLD AUTO 36.7 % Below low normal 08/17/2023 44 - 74 [facility] PMV BLD AUTO 8.8 fL Normal 08/17/2023 7.4 - 11.4 [facility]G BASOPHILS NFR BLD AUTO 1.4 % Normal 08/17/2023 0 - 2 [facility] LYMPHOCYTES NO. BLD AUTO 1.9 K/uL Normal 08/17/2023 1 - 3.2 [facility] HGB BLD MCNC 16.7 g/dL Normal 08/17/2023 13.5 - 18 [facility] MG AST SERPL CCNC 11.0 U/L Normal 08/17/2023 5 - 40 [facility] CHLORIDE SERPL SCNC 102.0 mmol/L Normal 08/17/2023 98 - 1 07 [facility] HCO3 SER SCNC 31.0 mmol/L Normal 08/17/2023 24 - 32 [facility] POTASSIUM SERPL SCNC 4.1 mmol/L Normal 08/17/2023 3.5 - 5 .1 [facility] CALCIUM SERPL MCNC 9.2 mg/dL Normal 08/17/2023 8.4 - 10.2 [facility] PROT SERPL MCNC 6.8 g/dL Normal 08/17/2023 6.4 - 8.5 [facility] BILIRUB SERPL MCNC 0.6 mg/dL Normal 08/17/2023 0.3 - 1 [facility] Glomerular filtration rate/1.73 sq M. predicted 101.0 Normal 08/17/2023 60 - [facility] CREAT SERPL MCNC 0.8 mg/dL Normal 08/17/2023 0.7 - 1.3 [facility] ANION GAP SERPL SCNC 9.0 mmol/L Normal 08/17/2023 5 - 14 [facility] ALT SERPL CCNC 25.0 U/L Normal 08/17/2023 7 - 52 [facility] BUN SERPL MCNC 9.0 mg/dL Normal 08/17/2023 9 - 20 [facility] ALBUMIN SERPL BCG MCNC 4.6 g/dL Normal 08/17/2023 3.5 - 5 [facility] GLUCOSE SERPL MCNC 76.0 mg/dL Normal 08/17/2023 70 - 199 [facility] SODIUM SERPL SCNC 142.0 mmol/L Normal 08/17/2023 135 - 14 5 [facility] ALP SERPL-CCNC 87.0 U/L Normal 08/17/2023 34 - 104 [facility] FERRITIN 144.0 ng/mL Normal 08/13/2023 26 - 388 [facility] PLATELET COUNT 192.0 K/uL Normal 08/13/2023 150 - 480 [facility] EOSINOPHILS 3.0 % Normal 08/13/2023 0 - 6 [facility] LYMPHS 38.0 % Normal 08/13/2023 16 - 50 [facility] HGB 16.8 g/dL Normal 08/13/2023 13.5 - 18 [facility] MONOCYTES 14.0 % Above high normal 08/13/2023 0 - 12 C [facility] ABSOLUTE GRANULOCYTES 1.8 K/uL Below low normal 08/13/2023 2.2 - 7.3 [facility] ABSOLUTE NUCLEATED RBC 0.0 K/uL Normal 08/13/2023 0 - 0. 012 [facility] ABSOLUTE BASO 0.0 K/uL Normal 08/13/2023 0 - 0.2 [facility] MMH RBC 4.92 M/uL Normal 08/13/2023 4.3 - 6 [facility] NUCLEATED RBC 0.0 % Normal 08/13/2023 0 - 0.2 [facility] MMH MCHC 36.9 g/dL Above high normal 08/13/2023 31 - 36 C [facility] HCT 45.5 % Normal 08/13/2023 40 - 52 [facility] MCV 93.0 fL Normal 08/13/2023 83 - 102 [facility] GRANULOCYTES 45.0 % Normal 08/13/2023 23 - 78 [facility] ABSOLUTE EOS 0.1 K/uL Normal 08/13/2023 0 - 0.7 [facility] RDW 12.1 % Normal 08/13/2023 11.1 - 13.3 [facility] MPV 10.0 fL Normal 08/13/2023 8 - 12 [facility] WBC 4.1 K/uL Normal 08/13/2023 3.7 - 10.3 [facility] MCH 34.0 PG Normal 08/13/2023 27 - 34 [facility] BASOPHILS 1.0 % Normal 08/13/2023 0 - 2 [facility] ABSOLUTE LYMPHS 1.6 K/uL Normal 08/13/2023 1.5 - 4.9 [facility] ABSOLUTE MONOS 0.6 K/uL Normal 08/13/2023 0.2 - 1.5 [facility] IMMATURE GRANULOCYTES 0.0 % Normal 08/13/2023 0 - 0.4 5 [facility] ABSOLUTE IMMATURE GRANULOCYTES 0.0 K/uL Normal 08/13/2023 0 - 0.3 [facility] COMMENT * Normal 08/13/2023 [facility] FERRITIN 89.0 ng/mL Normal 05/09/2023 26 - 388 [facility] ABSOLUTE BASO 0.1 K/uL Normal 05/08/2023 0 - 0.2 [facility] MMH IMMATURE GRANULOCYTES 0.0 % Normal 05/08/2023 0 - 0.4 5 [facility] GRANULOCYTES 50.0 % Normal 05/08/2023 23 - 78 [facility] ABSOLUTE IMMATURE GRANULOCYTES 0.0 K/uL Normal 05/08/2023 0 - 0.3 [facility] BASOPHILS 1.0 % Normal 05/08/2023 0 - 2 [facility] RDW 12.3 % Normal 05/08/2023 11.1 - 13.3 [facility] NUCLEATED RBC 0.0 % Normal 05/08/2023 0 - 0.2 [facility] MMH HGB 16.8 g/dL Normal 05/08/2023 13.5 - 18 [facility] ABSOLUTE EOS 0.2 K/uL Normal 05/08/2023 0 - 0.7 [facility] RBC 4.94 M/uL Normal 05/08/2023 4.3 - 6 [facility] HCT 45.4 % Normal 05/08/2023 40 - 52 [facility] MONOCYTES 8.0 % Normal 05/08/2023 0 - 12 [facility] MCV 92.0 fL Normal 05/08/2023 83 - 102 [facility] ABSOLUTE MONOS 0.4 K/uL Normal 05/08/2023 0.2 - 1.5 [facility] MCHC 37.0 g/dL Above high normal 05/08/2023 31 - 36 C [facility] ABSOLUTE NUCLEATED RBC 0.0 K/uL Normal 05/08/2023 0 - 0. 012 [facility] LYMPHS 37.0 % Normal 05/08/2023 16 - 50 [facility] PLATELET COUNT 197.0 K/uL Normal 05/08/2023 150 - 480 [facility] EOSINOPHILS 4.0 % Normal 05/08/2023 0 - 6 [facility] ABSOLUTE LYMPHS 1.9 K/uL Normal 05/08/2023 1.5 - 4.9 [facility] MPV 10.0 fL Normal 05/08/2023 8 - 12 [facility] ABSOLUTE GRANULOCYTES 2.5 K/uL Normal 05/08/2023 2.2 - 7 .3 [facility] MCH 34.0 PG Normal 05/08/2023 27 - 34 [facility] WBC 5.1 K/uL Normal 05/08/2023 3.7 - 10.3 [facility] COMMENT * [facility] of Medication Use Medication Directions Dispensed Refills Start Date End Date [facility] sildenafil (VIAGRA) 100 MG tablet TAKE ONE TABLET BY MOUTH ONE HOUR PRIOR TO SEXUAL ACTIVITY ON AN EMPTY STOMACH FOR ERECTILE DYSFUNCTION DIRECTED 06/02/2023 4 active Testosterone 1.62 % Gel PLACE 2 PUMPS ON THE SKIN EVERY MORNING. MAX DAILY AMOUNT : 2 PUMPS 03/05/2023 5 active tadalafil (CIALIS) 5 mg tablet TAKE ONE TABLET BY MOUTH ONCE DAILY NEEDED FOR ERECTILE DYSFUNCTION 02/06/2023 4 active testosterone (ANDROGEL) 20.25 mg/pump (1.62%) transdermal gel Place 2 Pump on the skin every morning. Max Daily Amount: 2 Pump 09/09/2022 3 active sildenafil (VIAGRA) 100 MG tablet TAKE ONE TABLET BY MOUTH ONE HOUR PRIOR TO SEXUAL ACTIVITY ON AN EMPTY STOMACH FOR ERECTILE DYSFUNCTION DIRECTED 08/08/2022 active sildenafil (VIAGRA) 100 MG tablet Take 1 tablet (100 mg total) by mouth daily as needed for erectile dysfunction. Take 1 hour prior to sexual activity on an empty stomach 05/07/2022 3 aborted Multiple Vitamins-Minerals (Multivitamin Men 50+) Tab Take by mouth. 10/18/2021 active tadalafil (CIALIS) 5 mg tablet TAKE ONE TABLET BY MOUTH EVERY DAY NEEDED FOR ERECTILE DYSFUNCTION 06/11/2021 5 active sildenafil 100 mg tablet TAKE ONE TABLET BY MOUTH ONE HOUR PRIOR TO SEXUAL ACTIVITY ON AN EMPTY STOMACH FOR ERECTILE DYSFUNCTION DIRECTED 5 completed tadalafil 5 mg tablet TAKE ONE TABLET BY MOUTH EVERY DAY NEEDED FOR ERECTILE DYSFUNCTION 5 completed sildenafil (REVATIO) 20 MG tablet sildenafil (pulmonary hypertension) 20 mg tablet Take 3 tablets by mouth one hour prior to sex as needed. 4 active testosterone 20.25 mg/1.25 gram per pump act.(1.62 %) transdermal gel APPLY 2 PUMPS TO THE SKIN EVERY MORNING . MAX 2 PUMPS DAILY active albuterol (PROVENTIL HFA; VENTOLIN HFA) 108 (90 Base) MCG/ACT inhaler Ventolin HFA 90 mcg/actuation aerosol inhaler active cetirizine (ZyrTEC) 10 MG tablet every 24 hours. active Cholecalciferol (VITAMIN D3) 2000 UNITS Cap capsule Vitamin D3 50 mcg (2,000 unit) capsule Take by oral route. active diazepam (VALIUM) 5 MG tablet diazepam 5 mg tablet active GLUCOSAMINE CHONDROITIN COMPLX PO Glucosamine Chondroitin Complx Oral Capsule Refills: 0 Active active glucosamine-chondroi tin 500-400 mg tablet Glucosamine Chondroitin Complx Oral Capsule Refills: 0 Active active Influenza Vac Split Quad (FLUZONE, FLUARIX, FLULAVAL, AFLURIA QUADRIVALENT) 0.5 ML injection Fluzone Quad (PF) 60 mcg (15 mcg x 4)/0.5 mL IM syringe PHARMACY ADMINISTERED active Influenza Vac Split Quad (FLUZONE, FLUARIX, FLULAVAL, AFLURIA QUADRIVALENT) 0.5 ML injection Fluzone Quad (PF) 60 mcg (15 mcg x 4)/0.5 mL IM syringe PHARMACY ADMINISTERED active Influenza Vac Split Quad (FLUZONE, FLUARIX, FLULAVAL, AFLURIA QUADRIVALENT) 0.5 ML injection Fluzone Quad (PF) 60 mcg (15 mcg x 4)/0.5 mL IM syringe PHARMACY ADMINISTERED active Influenza Vac Split Quad (FLUZONE, FLUARIX, FLULAVAL, AFLURIA QUADRIVALENT) 0.5 ML injection Fluzone Quad (PF) 60 mcg (15 mcg x 4)/0.5 mL IM syringe PHARMACY ADMINISTERED active multivit with minerals/lutein (MULTIVITAMIN 50 PLUS ORAL) Multivitamins CAPS Refills: 0 Active active Allergies Allergen Reaction Severity Comment Documented Date Source Statu s SEASONAL 01/21/2022 [facility] active POLLEN EXTRACT UNKNOWN/PATIENT AND FAMILY UNABLE TO DEFINE Other reaction(s): Unknown/Patie nt and Family Unable to Define [facility] SEASONALE (91) [facility] Problems Problem Status Onset Date Problem Type Date of Resolution Source Anxiety active 2021-06-13 ProblemAct [facility] Primary erectile dysfunction active 2020-05-29 ProblemAct [facility] Hemochromatosis active 2008-09-[address] [facility] Perennial allergic rhinitis active 2020-05-29 ProblemAct [facility] Left foot pain active EncounterDiagnosisAct [facility] Closed nondisplaced fracture of phalanx of left great toe with routine healing, unspecified phalanx, subsequent encounter active EncounterDiagnosisAct [facility] 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 active 2023-08-24 ProblemAct [facility] Hemochromatosis active 2008-09-03 ProblemAct EN [facility] Anxiety active 2021-06-13 ProblemAct [facility] Perennial allergic rhinitis active 2020-05-29 ProblemAct [facility] Bradycardia active 2024-11-07 ProblemAct [facility] Primary erectile dysfunction active 2020-05-29 ProblemAct [facility] Snoring active 2024-08-25 ProblemAct [facility] Immunizations Vaccine Date Source Lot Number Status Influenza, injectable, Madin Schaller Canine Kidney, preservative free 02/06/2024 [id number] comple artur SARS-COV-2 (COVID-19) vaccin e, mRNA, spike protein, LNP, preservative free, 50 mcg/0.5 mL dose 02/06/2024 [facility] [id number] completed tetanus toxoid, reduced diph theria toxoid, and acellular pertussis vaccine, adsorbed 08/24/2023 [facility] [id number] completed Respiratory syncytial virus (RSV), vaccine, recombinant, protein subunit RSV prefusion F, adjuvant reconstituted, 0.5 mL, preservative free 04/09/2023 [facility] [id number] completed SARS-COV-2 (COVID-19) vaccin e, mRNA, spike protein, LNP, preservative free, emile-sucrose, 30 mcg/0.3 mL dose 03/16/2023 [facility] [id number] completed Influenza, injectable, Madin Schaller Canine Kidney, preservative free, quadrivalent 02/07/2023 [facility] [id number] completed tetanus toxoid, reduced diph theria toxoid, and acellular pertussis vaccine, adsorbed 02/07/2023 [facility] [id number] completed Influenza, injectable, quadr ivalent, preservative free 05/09/2022 [facility] [id number] completed SARS-COV-2 (COVID-19) vaccin e, mRNA, spike protein, LNP, bivalent, preservative free, 50 mcg/0.5 mL dose 02/20/2022 [facility] [id number] completed SARS-COV-2 (COVID-19) vaccin e, mRNA, spike protein, LNP, preservative free, 100 mcg/0.5mL dose 11/26/2021 [facility] [id number] completed Influenza, injectable, Madin Kathy Canine Kidney, quadrivalent 06/13/2021 [facility] [id number] completed SARS-COV-2 (COVID-19) vaccin e, mRNA, spike protein, LNP, preservative free, 100 mcg/0.5mL dose 05/03/2021 [facility] [id number] completed SARS-COV-2 (COVID-19) vaccin e, mRNA, spike protein, LNP, preservative free, 100 mcg/0.5mL dose 09/18/2020 [facility] [id number] completed SARS-COV-2 (COVID-19) vaccin e, mRNA, spike protein, LNP, preservative free, 100 mcg/0.5mL dose 08/21/2020 [facility] [id number] completed zoster vaccine subunit 07/30/2020 [facility] [id number] co mpleted zoster vaccine subunit 05/29/2020 [facility] [id number] co mpleted Influenza, injectable, quadr ivalent, preservative free 03/01/2020 [facility] [id number] completed Seasonal, quadrIvalent, arianna mbinant, injectable influenza vaccine, preservative free 04/14/2019 [facility] [id number] completed pneumococcal polysaccharide vaccine, 23 valent 08/21/2015 [facility] completed tetanus toxoid, reduced diph theria toxoid, and acellular pertussis vaccine, adsorbed 05/11/2014 [facility] completed Encounters Encounter Type Encounter Reason Primary Diagnosis Location Date Ambulatory [facility]25 [facility]2025 [facility]2024 Ambulatory [facility] 11/28/2024 Ambulatory Pain in left foot Pain in left foot formerly [facility] 11/25/2024 Ambulatory Pain in left foot Pain in left foot formerly [facility] 11/25/2024 [facility]ulatory [facility] 11/15/2024 [facility] 11/07/2024 Ambulatory [facility] 10/17/2024 Ambulatory Displaced fracture of proximal phalanx o Displaced fracture of proximal phalanx of left great toe, initial encounter for closed fracture [facility] 10/17/2024 Ambulatory Erectile dysfunction due to diseases classified elsewhere Erectile dysfunction due to diseases classified elsewhere [facility] 10/13/2024 Ambulatory [facility] 09/08/2024 Ambulatory [facility] 08/25/2024 [facility]ulatory [facility] 08/25/2024 Ambulatory [facility] 08/25/2024 [facility] 08/25/2024 [facility]ulatory [facility] 08/17/2024 [facility]ulatory [facility] 08/17/2024 Ambulatory Pain in left shoulder Pain in left shoulder [facility] 05/24/2024 Ambulatory Impingement syndrome of left shoulder Impingement syndrome of left shoulder [facility] 05/24/2024 Ambulatory [facility] 12/01/2023 Ambulatory Erectile dysfunction due to diseases classified elsewhere Erectile dysfunction due to diseases classified elsewhere [employer] [facility] 10/14/2023 Ambulatory [facility] 08/13/2023 [facility] 05/08/2023 [facility] 12/03/2022 Ambulatory Erectile dysfunc tion due to diseases classified elsewhere [facility] 11/26/2022 [facility] 11/12/2022 Ambulatory Erectile dysfunc tion due to diseases classified elsewhere [facility] 08/27/2022 Ambulatory Scar conditions and fibrosis of skin [facility] 08/15/2022 Ambulatory Erectile dysfunc tion due to diseases classified elsewhere [facility] 05/07/2022 Ambulatory Benign prostatic hyperplasia with lower urinary tract symptoms [facility] 10/09/2021 Ambulatory Sebaceous cyst [facility] 09/06/2021 Ambulatory Benign prostatic hyperplasia with lower urinary tract symptoms [facility] 06/11/2021 Care Team Organization Name Specialty Phone Email Start Date End Da te [facility] 03/30/2025 [facility] Primary Care 03/27/2025 [facility] 10/19/[address] [facility] Primary Care 10/13/2024 11/11/2024 [facility] 08/25/2024 [facility] 08/17/2024 [facility] Primary Care 024 [facility] Primary Care 06/28/2023 12/27/2024 [facility] Primary Care 11/14/2022 01/25/2024 [facility] Primary Care 11/13/2022 12/28/19 25 [facility] Primary Care 11/12/2022 11/13/19 23 [facility] provided No Primary Care 08/07/2022 12/27/2024 [facility] 05/07/2022 025 [facility] Primary Care 04/15/2022 01/25/2024 [facility] No provided Primary Care 04/14/2022 022 [facility] 04/13/[address] [facility] Primary Care 09/06/2021 10/09/2021
--- OUTSIDE RECORDS SUMMARY | 2025-04-03 17:25 | XMS_ITS | Encounter Summary ---
Author Organization [facility] Address [address] [place] [address] Care Team Providers Care Tie Bucker Name Role Phone Morro Sanchez MD Primary Care Provider + [phone] Reason for Visit * Reason Comments Medication Refill Encounter Details Date Type Department Care Team (Late st Contact Info) Description 12/16/2023 Telephone [facility] [place] [address] [place] [address] Bart Connell MD [address] [place] [id number] Medication Refill Social History Tobacco Use Types Packs/Day Years [...] AM EDT documented as of this encounter Miscellaneous Notes * Telephone Encounter - Maral Fernandez LPN - 12/16/2023 11:46 AM EDT [facility] Verbal refill placed 07/07/09 inject 0.25 ml and titrate to effect 6 refills 10 ml bottle Ordering provider Dr. Bart Connell documented in this encounter Plan of Treatment Upcoming Encounters Date Type Department Care Team (Late st Contact Info) Description 10/19/2025 2:45 PM EDT Office Visit [facility] [address] [phone] Bart Connell MD [address] [place] [id number] documented as of this encounter Visit Diagnoses Not on filedocumented in this encounter Care Teams Tie Bucker Relationship Specialty Start Date End Date Morro Sanchez MD [address] [place] [phone] PCP - General Internal Medicine 04/24/21 documented as of this encounter
--- OUTSIDE RECORDS SUMMARY | 2025-04-03 17:25 | XMS_ITS | Encounter Summary ---
Author Organization [facility] Address [address] [place] [id number] Care Team Providers Care Plant Protection Supervisor Name Role Phone Morro Sanchez MD Primary Care Provider + [phone] Encounter Details Date Type Department Care Team (Late Contact Info) Description 07/14/2023 Scanned Document [facility] [place] [phone] Bart Connell MD [address] [place] [address] Social History Tobacco Use Types Packs/Day Years [...] Description 10/19/2025 2:45 PM EDT Office Visit [facility] [address] [phone] Bart Connell MD [address] [place] [address] documented as of this encounter Visit Diagnoses Not on filedocumented in this encounter Care Teams Plant Protection Supervisor Relationship Specialty Start Date End Date Morro Sanchez MD [address] [place] [phone] PCP - General Internal Medicine 04/24/21 documented as of this encounter
--- OUTSIDE RECORDS SUMMARY | 2025-04-03 17:25 | XMS_ITS | Encounter Summary ---
Author Organization [facility] Address [address] [place] [id number] Care Team Providers Care Ward Secretary Name Role Phone Morro Sanchez MD Primary Care Provider + [phone] Encounter Details Date Type Department Care Team (Late Contact Info) Description 12/05/2022 Scanned Document [facility] Urologic Surgery [address] [phone] Bart Connell MD [address] [place] [address] Social History Tobacco Use Types Packs/Day Years [...] Orientation Heterosexual (straight) 10/11 8:57 AM EDT COVID-19 Exposure Response Date Recorded In the last 10 days, have yo u been in contact with someone who was confirmed or suspected to have Coronavirus/COVID-19? No / Unsure 11/26/2022 2:59 PM EDT documented as of this encounter Plan of Treatment Upcoming Encounters Date Type Department Care Team (Late st Contact Info) Description 10/19/2025 2:45 PM EDT Office Visit [facility] Urologic [facility] [place] [phone] Bart Connell MD [address] [address] documented as of this encounter Visit Diagnoses Not on filedocumented in this encounter Care Teams Ward Secretary Relationship Specialty Start Date End Date Morro Sanchez MD [address] [place] [phone] PCP - General Internal Medicine 04/24/21 documented as of this encounter
--- OUTSIDE RECORDS SUMMARY | 2025-04-03 17:25 | XMS_ITS | Encounter Summary ---
Author Organization [facility] Address [address] [place] [id number] Care Team Providers Care Mainframe Architect Name Role Phone Morro Sanchez MD Primary Care Provider + [phone] Encounter Details Date Type Department Care Team (Late Contact Info) Description 12/08/2023 Scanned Document [facility] Urologic Surgery [place] [phone] Yordy Rogers MD [address] [facility] [address] [place] [address] Social History Tobacco Use Types Packs/Day Years [...] Description 10/19/2025 2:45 PM EDT Office Visit [facility] Urologic Surgery [address] [phone] Bart Connell MD [address] [place] [address] documented as of this encounter Visit Diagnoses Not on filedocumented in this encounter Care Teams Mainframe Architect Relationship Specialty Start Date End Date Morro Sanchez MD 1 [place] [phone] PCP - General Internal Medicine 04/24/21 documented as of this encounter
--- OUTSIDE RECORDS SUMMARY | 2025-04-03 17:25 | XMS_ITS | Clinical Summary ---
Author Organization [employer] Address [address] [facility] [address] [address] Care Team Providers Care Investment Consultant Name Role Phone Morro Sanchez MD Primary Care Provider [phone] Allergies Active Allergy Reactions Criticality Noted Date Comments No Known Drug Allergies Medications testosterone 20.25 mg/1.25 gram (1.62 %) glpm Place 2 pumps on the skin 3 Active glucosamine-cho ndroitin 500-400 mg tablet Glucosamine Chondroitin Complx Oral Capsule Refills: 0 Active Active multivitamin with minerals tablet Take by mouth 2 Active cetirizine (ZyrTEC) 10 MG tablet Take 1 tablet (10 mg total) by mouth daily Active Active Problems Problem Noted Date Diagnosed Date Hemochromatosis 09/03/2008 Social History Tobacco Use Types Packs/Day Years Used Date Smoking Tobacco: Never Smokeless Tobacco: Never Tobacco Cessation:Counseling Given: Yes Comments:Continue healthy life style Alcohol Use Standard Drinks/Week Comments Not Currently 0 (1 standard drink = 0.6 oz pur e alcohol) Sex and Gender Information Value Date Recorded Sex Assigned at Not on file Legal Sex Male 1:11 AM EDT Gender Identity Not on file Sexual Orientation Not on file Last Filed Vital Signs Vital Sign Reading Time Taken Comments Blood Pressure 116/76 10/21/2022 10:37 AM EDT Pulse 83 10/21/2022 10:37 AM EDT Temperature 36.7 C (98.1 F) 10/21/2022 10:37 AM EDT Respiratory Rate 18 05/09/2023 10:46 AM EST Oxygen Saturation 98% 10/21/2022 10:37 AM EDT Inhaled Oxygen Concentration - - Weight 83 kg (183 lb) 05/09/2023 10:46 AM EST Height 188 cm (6' 2 ) 05/09/2023 10:46 AM EST Body Mass Index 23.5 05/09/2023 10:46 AM EST Plan of Treatment Health Maintenance Due Date Last Done Comments Colorectal Cancer: COLONOS[place] PY Screening every 10 yrs (or Modifier) 1960 Depression: Screening Annual ly using PHQ-2/9 in Adults 18 yrs or above (or HM Modifier)([facility]) 1980 Hepatitis C Virus Infection in Adolescents and Adults: Screening (or Modifier) ([facility]) 1980 [facility] Screening Reminder: Tonia ually for all adults ([facility]) 1980 Colorectal Cancer Screening 45 -75 Yrs (or HM Modifier) 10/27/2007 Colorectal Cancer: FLEXIBLE SIGMOIDOSCOPY Screening every 5 yrs 10/27/2007 Colorectal Cancer: Fecal Immunochemical Test (FIT) Annually [facility] 10/27/2007 Colorectal Cancer: High-sensitivity gFOBT Screening Annually [facility] 10/27/2007 Colorectal Cancer: Stool Col oguard Screening every 3 yrs 10/27/2007 Colorectal Cancer:CT Colonog luis e Screening every 5 yrs 10/27/2007 Pneumococcal Vaccination Screening: Patients 50+ yrs of age ([facility]) (2 of 2 - PCV) 08/20/2016 08/21/2015 Flu Vaccination: Yearly for ages 18mos through 64 years (or Modifier)([facility]) 01/06/2025 03/01/2020, 04/14/2019, 04/14/2019 COVID-19 Vaccine Screening: Initial Series and Booster Status ([facility]) (2024- season) 2025 11/26/2021, 05/03/2021, 09/18/2020, Additional history exists DTaP/Tdap/Td Vaccines ([facility]) (3 - Td or Tdap) 08/23/2033 08/24/2023, 05/11/2014 RSV Vaccines (1 - 1-dose 75+ series) 2037 Pneumococcal Vaccination Screening: Pts 0-19 & 19-49 yrs of age ([facility]) Discontinued 08/21/2015 Zoster/Shingles Vaccine Seri es Screening: Adults aged 18+ yrs (or HM Modifiers)([facility]) Completed 07/30/2020, 05/29/2020 Medical Devices Not on file Insurance [facility] Care Teams Investment Consultant Relationship Specialty Start Date End Date Morro Sanchez MD [address] [facility] [place] [phone] PCP - General Family Medicine 10/03/19
--- OUTSIDE RECORDS SUMMARY | 2025-04-03 17:25 | XMS_ITS | Data Portability ---
Author Organization [place] [facility], [facility] ADMIN Address [address] [place] [address] Assessment Encounter Date Assessment Date Assessment LastModified by Organization Details LastModified Time 08/25/2024 08/25/2024 The patient presented today for an annual physical examination. Education was provided on healthy nutrition, including a diet rich in fruits and vegetables, minimizing simple carbohydrates, salt, and saturated fats. Encouraged regular cardiovascular exercise such as walking at least 30 minutes daily, 5 times per week. The patient was also advised to: . . . Not available 08/25/2024 13:28:01 Plan of Treatment Reminders Order Date Submit Date Provider Last Modified By Organization Details Last Modified Time Details Appointments PHYSICAL 40 2025 01:00P M Dr.Buckma bello Not available Not available Not available Lab CMP, serum or plasma 2024 026 [facility], [address] [place] [address], [address], 08/26/2024 17:36:37 CBC w/ auto diff 2024 026 [facility], [address] [place] [address], [address], 08/26/2024 17:36:37 TSH, serum or plasma 2024 026 [email or web address] [address] [facility], [address] [place] [address], [address], 08/26/2024 17:36:37 uric acid, serum or plasma 2024 026 [email or web address] [facility], [address] [place] [address], [address], 08/26/2024 17:36:37 HbA1c (hemoglo bin A1c), blood 2024 026 [email or web address] [facility], [address] [place] [address], [address], 08/26/2024 17:36:37 PSA, serum or plasma [email or web address] [facility], [address] [place] [address], [address], 08/26/2024 17:36:37 lipid panel w/ direct LDL, serum [address] [facility], [address] [place] [address], [address], 08/26/2024 17:36:37 urinalys is, dipstick [email or web address] [facility], [address] [place] [address], [address], 08/26/2024 17:36:37 Referral None recorded . Procedures holter monitor anne mariemen t (PROC) 2024 025 [email or web address] Not available 11/22/2024 16:22:02 Surgeries None recorded . Imaging home sleep study 2024 025 [facility], [address] [facility], [facility] [address], [place] [place], [address], 10/13/2024 10:23:29 Medication Orders None recorded . Patient TargetsNo targets recorded. Patient Instructions Encounter Date Encounter Id Patient Instructions Last Modified By Organization Details Last Modified Time 11/07/2024 [id number] will evaluate further with 7day heart monitor. samantha Not available 11/07/2024 14:22:23 Reason for Referral None Reported. Results Created Date Observation Date Name Description Value Unit Range Abnormal Flag Note LastModifiedBy Organization Detail LastModifiedTime 08/19/19 25 08/18/2024 CBC WITH AUTO DIFFE RENTI AL WBC 4.2 K/mcL 4.0-10 .5 Not Available [address], [address], 08/18/2024 18:53:03 08/19/19 25 08/18/2024 CBC WITH AUTO DIFFE RENTI AL RBC 5.20 M/mcL 4.70-6 .00 Not Available [address], [address], 08/18/2024 18:53:03 08/19/19 25 08/18/2024 CBC WITH AUTO DIFFE RENTI AL hemoglobin 16.9 g/dL 13.5-1 8.0 Not Available [address], [address], 08/18/2024 18:53:03 08/19/19 25 08/18/2024 CBC WITH AUTO DIFFE RENTI AL hematocrit 49.4 % 40.0-5 4.0 Not Available [address], [address], 08/18/2024 18:53:03 08/19/19 25 08/18/2024 CBC WITH AUTO DIFFE RENTI AL MCV 95.0 fL 78.0-1 00.0 Not Available [address], [address], 08/18/2024 18:53:03 08/19/19 25 08/18/2024 CBC WITH AUTO DIFFE RENTI AL MCH 32.6 pcg 25.0-3 3.0 Not Available [address], [address], 08/18/2024 18:53:03 08/19/19 25 08/18/2024 CBC WITH AUTO DIFFE RENTI AL MCHC 34.3 g/dL 32.0-3 6.0 Not Available [address], [address], 08/18/2024 18:53:03 08/19/19 25 08/18/2024 CBC WITH AUTO DIFFE RENTI AL RDW 12.5 % 12.1-1 7.7 Not Available [address], [address], 08/18/2024 18:53:03 08/19/19 25 08/18/2024 CBC WITH AUTO DIFFE RENTI AL platelets 185 K/mcL 150-45 0 Not Available [address], [address], 08/18/2024 18:53:03 08/19/19 25 08/18/2024 CBC WITH AUTO DIFFE RENTI AL MPV 9.9 fL 7.4-11 .4 Not Available [address], [address], 08/18/2024 18:53:03 08/19/19 25 08/18/2024 CBC WITH AUTO DIFFE RENTI AL neutrophils relative 49.1 % 44.0-7 4.0 Not Available [address], [address], 08/18/2024 18:53:03 08/19/19 25 08/18/2024 CBC WITH AUTO DIFFE RENTI AL lymphocytes relative 38.6 % 20.0-4 8.0 Not Available [address], [address], 08/18/2024 18:53:03 08/19/19 25 08/18/2024 CBC WITH AUTO DIFFE RENTI AL monocytes relative 6.8 % 2.0-12 .0 Not Available [address], [address], 08/18/2024 18:53:03 08/19/19 25 08/18/2024 CBC WITH AUTO DIFFE RENTI AL eosinophils relative 4.3 % 0.0-6. 0 Not Available [address], [address], 08/18/2024 18:53:03 08/19/19 25 08/18/2024 CBC WITH AUTO DIFFE RENTI AL basophils relative 1.2 % 0.0-2. 0 Not Available [address], [address], 08/18/2024 18:53:03 08/19/19 25 08/18/2024 CBC WITH AUTO DIFFE RENTI AL neutrophils absolute 2.00 K/mcL 1.80-7 .80 Not Available [address], [address], 08/18/2024 18:53:03 08/19/19 25 08/18/2024 CBC WITH AUTO DIFFE RENTI AL lymphocytes absolute 1.60 K/mcL 1.00-3 .20 Not Available [address], [address], 08/18/2024 18:53:03 08/19/19 25 08/18/2024 CBC WITH AUTO DIFFE RENTI AL monocytes absolute 0.30 K/mcL 0.00-0 .80 Not Available [address], [address], 08/18/2024 18:53:03 08/19/19 25 08/18/2024 CBC WITH AUTO DIFFE RENTI AL eosinophils absolute 0.20 K/mcL 0.00-0 .50 Not Available [address], [address], 08/18/2024 18:53:03 08/19/19 25 08/18/2024 CBC WITH AUTO DIFFE RENTI AL basophils absolute 0.10 K/mcL 0.00-0 .20 Not Available [address], [address], 08/18/2024 18:53:03 08/19/19 25 08/18/2024 CBC WITH AUTO DIFFE KYLIE AL note SEE REPORT Collsong jones [facility] [address] [place] [address] ord, Mary[place]ticu t [address] Not Available [address], [address], 08/18/2024 18:53:03 08/19/19 25 08/18/2024 URIC ACID uric acid 5.4 mg/dL 3.5-8. 5 Not Available [address], [address], 08/18/2024 19:02:44 08/19/19 25 08/18/2024 COMPR EHENS ELIZABETH METAB OLIC PANEL sodium 140 mmol/ L 135-14 5 Not Available [address], [address], 08/18/2024 19:02:48 08/19/19 25 08/18/2024 COMPR EHENS ELIZABETH METAB OLIC PANEL potassium 4.5 mmol/ L 3.5-5. 1 Not Available [address], [address], 08/18/2024 19:02:48 08/19/19 25 08/18/2024 COMPR EHENS ELIZABETH METAB OLIC PANEL chloride 102 mmol/ L 98-107 Not Available [address], [address], 08/18/2024 19:02:48 08/19/19 25 08/18/2024 COMPR EHENS ELIZABETH METAB OLIC PANEL CO2 30 mmol/ L 24-32 Not Available [address], [address], 08/18/2024 19:02:48 08/19/19 25 08/18/2024 COMPR EHENS ELIZABETH METAB OLIC PANEL anion gap 8 5-14 Not Available [address], [address], 08/18/2024 19:02:48 08/19/19 25 08/18/2024 COMPR EHENS ELIZABETH METAB OLIC PANEL glucose 92 mg/dL 70-99 Not Available [address], [address], 08/18/2024 19:02:48 08/19/19 25 08/18/2024 COMPR EHENS ELIZABETH METAB OLIC PANEL BUN 11 mg/dL 9-20 Not Available [address], [address], 08/18/2024 19:02:48 08/19/19 25 08/18/2024 COMPR EHENS ELIZABETH METAB OLIC PANEL creatinine 0.90 mg/dL 0.70-1 .30 Not Available [address], [address], 08/18/2024 19:02:48 08/19/19 25 08/18/2024 COMPR EHENS ELIZABETH METAB OLIC PANEL eGFR 97 mL/mi n/1.7 3m2 >=60 Calcu latio n based on the C hroni c Kidne y Disea se Epide miolo gy Colla borat ion (CKD- EPI) equat ion refit w ithou t adjus tment for race. Not Available [address], [address], 08/18/2024 19:02:48 08/19/19 25 08/18/2024 COMPR EHENS ELIZABETH METAB OLIC PANEL BUN/creatini ne ratio 12.2 12.0-2 0.0 Not Available [address], [address], 08/18/2024 19:02:48 08/19/19 25 08/18/2024 COMPR EHENS ELIZABETH METAB OLIC PANEL calcium 9.7 mg/dL 8.4-10 .2 Not Available [address], [address], 08/18/2024 19:02:48 08/19/19 25 08/18/2024 COMPR EHENS ELIZABETH METAB OLIC PANEL AST (SGOT) 11 unit/ L 5-40 Not Available [address], [address], 08/18/2024 19:02:48 08/19/19 25 08/18/2024 COMPR EHENS ELIZABETH METAB OLIC PANEL ALT (SGPT) 20 unit/ L 7-52 Not Available [address], [address], 08/18/2024 19:02:48 08/19/19 25 08/18/2024 COMPR EHENS ELIZABETH METAB OLIC PANEL alkaline phosphatase 79 unit/ L 34-104 Not Available [address], [address], 08/18/2024 19:02:48 08/19/19 25 08/18/2024 COMPR EHENS ELIZABETH METAB OLIC PANEL total protein 6.4 g/dL 6.4-8. 5 Not Available [address], [address], 08/18/2024 19:02:48 08/19/19 25 08/18/2024 COMPR EHENS ELIZABETH METAB OLIC PANEL albumin 4.5 g/dL 3.5-5. 0 Not Available [address], [address], 08/18/2024 19:02:48 08/19/19 25 08/18/2024 COMPR EHENS ELIZABETH METAB OLIC PANEL total bilirubin 0.8 mg/dL 0.3-1. 0 Not Available [address], [address], 08/18/2024 19:02:48 08/19/19 25 08/18/2024 LIPID PANEL WITH REFLE X TO DIREC T LDL cholesterol 170 mg/dL 0-200 Not Available [address], [address], 08/18/2024 19:02:55 08/19/19 25 08/18/2024 LIPID PANEL WITH REFLE X TO DIREC T LDL triglyceride s 81 mg/dL <150 Not Available [address], [address], 08/18/2024 19:02:55 08/19/19 25 08/18/2024 LIPID PANEL WITH REFLE X TO DIREC T LDL HDL 68 mg/dL 32-70 Not Available [address], [address], 08/18/2024 19:02:55 08/19/19 25 08/18/2024 LIPID PANEL WITH REFLE X TO DIREC T LDL LDL calculated 86 mg/dL 50-130 Not Available [address], [address], 08/18/2024 19:02:55 08/19/19 25 08/18/2024 LIPID PANEL WITH REFLE X TO DIREC T LDL VLDL cholesterol lai 16.2 mg/dL No estab lishe d refer ence range . Not Available [address], [address], 08/18/2024 19:02:55 08/19/19 25 08/18/2024 THYRO ID STIMU LATIN G HORMO NE TSH 0.54 mciu/ mL 0.45-5 .33 Not Available [address], [address], 08/18/2024 19:03:00 08/19/19 25 08/18/2024 THYRO ID STIMU LATIN G HORMO NE note SEE REPORT Colla borat [facility], [address] [place] [address] ord, [place] [address] Not Available [address], [address], 08/18/2024 19:03:00 08/19/19 25 08/18/2024 PROST ATE SPECI FIC ANTIG EN SCREE N PSA 2.80 NG/mL 0.00-4 .00 Not Available [address], [address], 08/18/2024 19:10:01 08/19/19 25 08/18/2024 PROST ATE SPECI FIC ANTIG EN SCREE N note SEE REPORT Ladonna beckett el[facility], [address] [place] [address], [facility] cticu t [address] Not Available [address], [address], 08/18/2024 19:10:01 08/19/19 25 08/18/2024 HEMOG LOBIN A1C hemoglobin A1C 4.8 % <5.7 Not Available [address], [address], 08/19/2024 10:24:22 08/19/19 25 08/18/2024 HEMOG LOBIN A1C mean bld glu estim. 91 mg/dL Not Available [address], [address], 08/19/2024 10:24:22 08/19/19 25 08/18/2024 HEMOG LOBIN A1C note SEE REPORT Collsong beckett elizabeth [facility], [address] [place] [address], [facility] cticu t [address] Not Available [address], [address], 08/19/2024 10:24:22 08/26/19 25 08/25/2024 urina lysis , dipst ick Leukocytes Negati ve Not Available [address], [address], 08/25/2024 14:35:57 08/26/19 25 08/25/2024 urina lysis , dipst ick Nitrite negati ve Not Available [address], [address], 08/25/2024 14:35:57 08/26/19 25 08/25/2024 urina lysis , dipst ick Protein Negati ve Not Available [address], [address], 08/25/2024 14:35:57 08/26/19 25 08/25/2024 urina lysis , dipst ick pH 5.0 Not Available [address], [address], 08/25/2024 14:35:57 08/26/19 25 08/25/2024 urina lysis , dipst ick Blood Negati ve Not Available [address], [address], 08/25/2024 14:35:57 08/26/19 25 08/25/2024 urina lysis , dipst ick Specific [place] 1.005 Not Available [address], [address], 08/25/2024 14:35:57 08/26/19 25 08/25/2024 urina lysis , dipst ick Ketone Negati ve Not Available [address], [address], 08/25/2024 14:35:57 08/26/19 25 08/25/2024 urina lysis , dipst ick Bilirubin Negati ve Not Available [address], [address], 08/25/2024 14:35:57 08/26/19 25 08/25/2024 urina lysis , dipst ick Glucose Negati ve Not Available [address], [address], 08/25/2024 14:35:57 08/26/19 25 08/25/2024 urina lysis , dipst ick Appearance Clear Not Available [address], [address], 08/25/2024 14:35:57 08/26/19 25 08/25/2024 urina lysis , dipst ick Color Yellow Not Available [address], [address], 08/25/2024 14:35:57 10/06/19 25 09/26/2024 home sleep study No observ ation record ed. [email or web address] [address], [place], , 10/13/2024 10:23:29 Result Notes None recorded. Problems Name Problem SNOMED Code Status Onset Date Resolution Date Notes Provider Name and Address Organization Details Recorded Time Hemochrom atosis 161690678 Active 2008 Hemochrom atosis Not Available [facility] 4 22:15:59 Perennial allergic rhinitis 791271463 Active 2019 Perennial allergic rhinitis Not Available [facility] 4 22:15:59 Primary erectile dysfuncti on 741600594 Active 2019 Primary erectile dysfuncti on Not Available [facility] 4 22:15:59 Anxiety 19668287 Active 2021 Anxiety Morro Sanchez MD [address] [place], [address] , [place] - [facility] 5 14:18:56 Gonarthro sis of right knee due to and following trauma 8690450093 Active 2023 Post-trau matic osteoarth ritis of right knee Not Available [facility] 4 22:15:59 Snoring 10325804 Active 2024 Ciara Castillo RN [address] [place], [address] , [facility] 5 14:47:09 Bradycard ia 90850685 Active 2024 Morro Sanchez MD [address] [place], [address] , [facility] 5 14:21:58 Problem Notes None recorded. Medical Equipment None Reported. Allergies Allergen ID Allergen Name Allergen Category Reaction Reaction Severity Criticality Documentation Date Start Date Code Code System Note Provider Name and Address Organization Details Recorded Time 932176 ethinyl estradiol / levonorge strel medicatio n Not available Not available Not available 08/25/2024 32044 8 [facility] 5 14:08:41 Medications Name Sig Start Date Stop Date Status Note LastModified by Organization Details LastModified Time sildenafil 100 mg tablet TAKE ONE TABLET BY MOUTH ONE HOUR PRIOR TO SEXUAL ACTIVITY ON AN EMPTY STOMACH FOR ERECTILE DYSFUNCTI ON DIRECTED 08/25 completed Not Available Not Available Not Available tadalafil 5 mg tablet TAKE ONE TABLET BY MOUTH EVERY DAY NEEDED FOR ERECTILE DYSFUNCTI ON active Not Available Not Available No t Available testosteron e 20.25 mg/1.25 gram per pump act.(1.62 %) transdermal gel APPLY 2 PUMPS TO THE SKIN EVERY MORNING . MAX 2 PUMPS DAILY active Not Available Not Available No t Available Vitals Date Recorded Body height Body mass index (BMI) Body weight Heart rate Oxygen saturation Oxygen saturation in Arterial blood by Pulse oximetry Systolic And Diastolic Provider Name and Address Organization Details Last Updated DateTime 5 187.96 cm 24.8 kg/m2 67846.7 6 g 80 /min 96 % 96 % 130/70 mm[Hg] [facility] 5 14:12:55 Date Recorded Body height Body mass index (BMI) Body weight Heart rate Oxygen saturation Oxygen saturation in Arterial blood by Pulse oximetry Systolic And Diastolic Provider Name and Address Organization Details Last Updated DateTime 5 187.96 cm 24.3 kg/m2 23260.6 8 g 74 /min 97 % 97 % 132/90 mm[Hg] Ciara Castillo RN [address] [place], [address], [facility] 5 13:49:04 Date Recorded Body height Body mass index (BMI) Body weight Oxygen saturation Oxygen saturation in Arterial blood by Pulse oximetry Heart rate Provider Name and Address Organization Details Last Updated DateTime 5 187.96 cm 24.3 kg/m2 38811.1 1 g 97 % 97 % 75 /min Charity Lewis [facility] 5 14:01:46 Social History None recorded. Functional Status None recorded. Mental Status None recorded. Family History Nothing Reported. Medical History No medical history recorded. Immunizations Vaccine Type Date Status Note Provider Nam e and Address Organization Details Recorded Time zoster recombinant 1 completed Not Available [facility] 05/12/2024 23:21:25 pneumococcal polysaccharide PPV23 6 completed Not Available [facility] 05/12/2024 23:21:25 Influenza, recombinant, quadrivalent, PF 9 completed Not Available [facility] 05/12/2024 23:21:25 COVID-19, mRNA, LNP-S, PF, 100 mcg/0.5mL dose or 50 mcg/0.25mL dose 1 completed Not Available [facility] 05/12/2024 23:21:25 Influenza, split virus, quadrivalent, PF 0 completed Not Available [facility] 05/12/2024 23:21:25 COVID-19, mRNA, LNP-S, PF, 100 mcg/0.5mL dose or 50 mcg/0.25mL dose 1 completed Not Available [facility] 05/12/2024 23:21:25 COVID-19, mRNA, LNP-S, PF, 100 mcg/0.5mL dose or 50 mcg/0.25mL dose 1 completed Not Available [facility] 05/12/2024 23:21:26 zoster recombinant 0 completed Not Available Replaced by [facility] 05/12/2024 23:21:26 COVID-19, mRNA, LNP-S, PF, 100 mcg/0.5mL dose or 50 mcg/0.25mL dose 2 completed Not Available [facility] 05/12/2024 23:21:26 Tdap 4 completed Not Available Replaced by [facility] 05/12/2024 23:21:26 Influenza, MDCK, quadrivalent, preservative 2 completed Not Available [facility] 05/12/2024 23:21:26 Tdap 4 completed Not Available Replaced by [facility] 05/12/2024 23:21:28 Influenza, MDCK, quadrivalent, PF 3 completed [facility] null, [place] [facility] 08/25/2024 14:05:47 COVID-19, mRNA, LNP-S, bivalent, PF, 50 mcg/0.5 mL or 25mcg/0.25 mL dose 2 completed [facility] [place] [facility] 08/25/2024 14:05:47 RSV, recombinant, protein subunit RSVpreF, adjuvant reconstituted, 0.5 mL, PF 3 completed [facility] null, [place] [facility] 08/25/2024 14:05:47 COVID-19, mRNA, LNP-S, PF, emile-sucrose, 30 mcg/0.3 mL 3 completed [facility] [place] [facility] 08/25/2024 14:05:47 COVID-19, mRNA, LNP-S, PF, 50 mcg/0.5 mL 4 completed [facility] [place], [place] [facility] 08/25/2024 14:05:47 Tdap 3 completed [facility] [place] [facility] 08/25/2024 14:05:47 Influenza, split virus, quadrivalent, PF 2 completed K[facility]A CARRERA null, [facility] 08/25/2024 14:05:47 Influenza, MDCK, trivalent, PF 4 completed [facility] 08/25/2024 14:05:47 Past Encounters Encounter ID Performer Location Encounter Start Date Encounter Closed Date Diagnosis/Indication Diagnosis SNOMED-CT Code Diagnosis ICD10 Code Diagnosis IMO Codes Diagnosis Note [id number] Morro Sanchez MD [address] [address] 08/25/2024 13:43:59 08/25/2024 14:50:13 Physical examination 0666280 Z00.00 568817 Snoring 23763386 R06.83 G47.30 [id number] Morro Sanchez MD [address] [address] 11/07/2024 13:39:13 11/07/2024 14:19:35 Bradycardia 85956216 R00.1 [id number] Morro Sanchez MD [address] [address] 11/17/2024 13:59:15 11/17/2024 14:14:39 Bradycardia 44744823 R00.1 [id number] Radha Herman ([id number] [id number]) Health Concerns Section Related Observation LastModified by Organization Detai ls LastModified Time None Recorded Concern Status LastModified by Organization Details LastModified Time None Recorded Advance Directives Directive None Recorded Payers Insurance Date Sequence Insurance Name Policy Number Policy Simental Covered Member ID Simental Member ID Guarantor Name 11/23/2024 1 [place] [id number] Sylvia Lopez [id number] Malik Lopez Notes Date Note Type Note Provider Name and Address Organization Details Recorded Time 08/25/2024 text/html Annual WellnessReported by PatientMental Status:For depression risk, patient reportsnever feels sad, empty, or tearful,no loss of interest in activities,no significant changes in weight,no sleep disturbances or insomnia,no agitation,no loss of energy,no feelings of worthlessness or guilt,no thoughts of suicide,no history of depression, andno history of mood disorders.Functional AbilityFor hearing, patient reportsno loss of hearing. For vision, patient reportsno vision problems. Patient presents for their annual visit. pt mentioned wanting to discuss ongoing chronic knee pain and shoulder pain at this time. Has been seeing ortho. reports increased snoring.PMHx, PSHx, FHx, allergies, social hx, medications, and health maintenance were reviewed and discussed today. Morro Sanchez MD [address] [place], [address], [facility] 08/26/2024 17:38:58 11/07/2024 text/html 64 yo male presents today to review at home sleep study results.continues to feel like he doesn't sleep well. home sleep study showed no apnea over 2 nights of testing. the study did show multiple periods of bradycardia. patient is not aware of these episodes.there was no hypoxemia noted. Morro Sanchez MD [address] [place], [address], [facility] 11/07/2024 14:22:48 11/17/2024 text/html 64 y/o patient presents in office for holter monitor placement. Ciara Castillo RN [address] [place], [address], [facility] 11/22/2024 16:22:42
--- OUTSIDE RECORDS SUMMARY | 2025-04-03 17:25 | XMS_ITS | Encounter Summary ---
Author Organization [facility] Address [address] [place] [address] Care Team Providers Care Farm Equipment Maintenance Supervisor Name Role Phone Morro Sanchez MD Primary Care Provider + [phone] Reason for Visit * Reason Comments Medication Refill Encounter Details Date Type Department Care Team (Late Contact Info) Description 10/01/2023 Refill [facility] Urologic Surgery [address] [phone] Bart Connell MD [address] [place] [address] Hypogonadism in male Social History Tobacco Use Types Packs/Day Years [...] [facility] Urologic Surgery [address] [phone] Bart Connell MD [address] [place], [place] [phone] documented as of this encounter Procedures Procedure Name Priority Date/Time Associated Diagnosis Comments TESTOSTERONE, FREE, BIOAVAILABLE, TOTAL W/SHBG Routine 10/02/2023 12:55 PM EDT Hypogonadism in male PSA Routine 10/02/2023 12:55 PM EDT Hypogonadism in male COMPLETE BLOOD COUNT, WITH DIFFERENTIAL Routine 10/02/2023 12:55 PM EDT Hypogonadism in male documented in this encounter Results * (ABNORMAL) Testosterone, Free, Bioavailable, Total w/SHBG (10/02/2023 12:55 PM EDT) Testosterone, Total 463 250 - 1,100 ng/dL [employer] [email or web address] [facility] Comment: For additional information, please refer to http://education.ClearCycle/faq/ AuruuXzpyfzmfwqyvBBNGOOWVN913 (This link is being provided for informational/ educational purposes only.) This test was developed and its analytical performance characteristics have been determined by [employer] [place], [place]. It has not been cleared or approved by the U.S. Food and Drug Administration. This assay has been validated pursuant to the CLIA regulations and is used for clinical purposes. Testosterone,Free 45.3(L) 46.0 - 224.0 pg/mL [employer] [place] Testosterone, Bioavailable 95.1(L) 110.0 - 575.0 ng/dL [facility] [place] Sex Hormone Binding Globulin 47 22 - 77 nmol/L [facility] [place] [place] Albumin 4.6 3.6 - 5.1 g/dL [employer] [place] Blood specimen (specimen) Blood specimen / Unknown 10/02/2023 12:55 PM EDT 10/02/2023 12:56 PM EDT Bart Connell MD LAB BLOOD ORDERABLES Final Res ult [facility] [address] [facility] [place] [address] * PSA (10/02/2023 12:55 PM EDT) Pathologist [facility] PSA, Total 1.96 < OR = 4.00 ng/mL [facility] Comment: The total PSA value from this assay system is standardized against the WHO standard. The test result will be approximately 20% lower when compared to the equimolar-standardized total PSA (Vish Ivania). Comparison of serial PSA results should be interpreted with this fact in mind. This test was performed using the Siemens chemiluminescent method. Values obtained from different assay methods cannot be used interchangeably. PSA levels, regardless of value, should not be interpreted as absolute evidence of the presence or absence of disease. Blood specimen (specimen) Blood specimen / Unknown 10/02/2023 12:55 PM EDT 10/02/2023 12:56 PM EDT Bart Connell MD LAB BLOOD ORDERABLES Final Res ult Performing Organization Address City/[facility]/ZIP Co de Phone Number [employer] [address] [place] [phone] * (ABNORMAL) Complete Blood Count, with Differential (10/02/2023 12:55 PM EDT) Pathologist [facility] White Blood Cell Count 5.0 3.8 - 10.8 Thousand/ uL [facility] Red Blood Cell Count 4.76 4.20 - 5.80 Million/u L [facility] Hemoglobin 16.0 13.2 - 17.1 g/dL [facility] Hematocrit 45.0 38.5 - 50.0 % [facility] MCV 94.5 80.0 - 100.0 fL [facility] MCH 33.6(H) 27.0 - 33.0 pg [facility] MCHC 35.6 32.0 - 36.0 g/dL [facility] RDW 11.9 11.0 - 15.0 % [facility] Platelet Count 214 140 - 400 Thousand/ uL [facility] MPV 10.7 7.5 - 12.5 fL [facility] Abs Neutrophils Auto 2,670 1,500 - 7,800 cells/uL [facility] Abs Lymphocytes Auto 1,745 850 - 3,900 cells/uL [facility] Abs Monocytes Auto 325 200 - 950 cells/uL [facility] Abs Eosinophils Auto 170 15 - 500 cells/uL [facility] Abs Basophils Auto 90 0 - 200 cells/uL [facility] Neutrophils Auto 53.4 % [facility] Lymphocytes Auto 34.9 % [facility] Monocytes Auto 6.5 % [facility] Eosinophils Auto 3.4 % [facility] [employer] Basophils Auto 1.8 % [facility] Blood specimen (specimen) Blood specimen / Unknown 10/02/2023 12:55 PM EDT 10/02/2023 12:56 PM EDT us Bart Connell MD LAB BLOOD ORDERABLES Final Res ult Performing Organization Address City/State/[facility] Co de Phone Number [facility] [address] [place] [phone] documented in this encounter Visit Diagnoses Diagnosis Hypogonadism in male documented in this encounter Care Teams Farm Equipment Maintenance Supervisor Relationship Specialty Start Date End Date Morro Sanchez MD [address] [place] [phone] PCP - General Internal Medicine 04/24/21 documented as of this encounter
--- OUTSIDE RECORDS SUMMARY | 2025-04-03 17:25 | XMS_ITS | Encounter Summary ---
Author Organization [facility] Address [address] [place] [address] Care Team Providers Care Telecommunication Equipment Repairer Name Role Phone Morro Sanchez MD Primary Care Provider + [phone] Encounter Details Date Type Department Care Team (Late Contact Info) Description 11/01/2024 Scanned Document [facility] Urologic Surgery [place] [phone] Bart Connell MD [address] [place] [address] Social History Tobacco Use Types Packs/Day Years [...] Description 10/19/2025 2:45 PM EDT Office Visit [facility] Urologic Surgery [address] [phone] Bart Connell MD [address] [place] [address] documented as of this encounter Visit Diagnoses Not on filedocumented in this encounter Care Teams Telecommunication Equipment Repairer Relationship Specialty Start Date End Date Morro Sanchez MD [address] [place] [phone] PCP - General Internal Medicine 04/24/21 documented as of this encounter
--- OUTSIDE RECORDS SUMMARY | 2025-04-03 17:25 | XMS_ITS | Encounter Summary ---
Author Organization [facility] Address [address] [place] [address] Care Team Providers Care Revenue Stamp Clerk Name Role Phone Morro Sanchez MD Primary Care Provider + [phone] Encounter Details Date Type Department Care Team (Late Contact Info) Description 10/21/2023 Scanned Document [facility] Urologic Surgery [place] [address] [phone] Bart Connell MD [address] [place] [address] Social History Tobacco Use Types Packs/Day Years [...] Description 10/19/2025 2:45 PM EDT Office Visit [facility] Urologic Surgery [address] [phone] Bart Connell MD [address] [place] [address] documented as of this encounter Visit Diagnoses Not on filedocumented in this encounter Care Teams Revenue Stamp Clerk Relationship Specialty Start Date End Date Morro Sanchez MD [address] [place] [phone] PCP - General Internal Medicine 04/24/21 documented as of this encounter
--- OUTSIDE RECORDS SUMMARY | 2025-04-03 17:25 | XMS_ITS | Encounter Summary ---
Author Organization [facility] Address [address] [place] [address] Care Team Providers Care It Systems Engineer Name Role Phone Morro Sanchez MD Primary Care Provider + [phone] Encounter Details Date Type Department Care Team (Late Contact Info) Description 09/26/2022 Scanned Document [facility] Urologic Surgery [address] [phone] Bart Connell MD [address] [place] [address] Social History Tobacco Use Types Packs/Day Years [...] suspected to have Coronavirus/COVID-19? No / Unsure 08/27/2022 2:16 PM EDT documented as of this encounter Plan of Treatment Upcoming Encounters Date Type Department Care Team (Late st Contact Info) Description 10/19/2025 2:45 PM EDT Office Visit [facility] Urologic Surgery [place] [phone] Bart Connell MD [address] [address] documented as of this encounter Visit Diagnoses Not on filedocumented in this encounter Care Teams It Systems Engineer Relationship Specialty Start Date End Date Morro Sanchez MD [address] [place] [phone] PCP - General Internal Medicine 04/24/21 documented as of this encounter
--- OUTSIDE RECORDS SUMMARY | 2025-04-03 17:25 | XMS_ITS | Encounter Summary ---
Author Organization [facility] Address [address] [place] [address] Care Team Providers Care Central Office Inspector Name Role Phone Morro Sanchez MD Primary Care Provider + [phone] Reason for Visit * Reason Comments Other Encounter Details Date Type Department Care Team (Late Contact Info) Description 10/28/2023 Telephone [facility] Urologic Surgery [place] [address] [facility] [address] [place] [address] Bart Connell MD [address] [place] [address] Other Social History Tobacco Use Types Packs/Day Years [...] encounter Miscellaneous Notes * Telephone Encounter - Bart Connell MD - 10/28/2023 12:45 PM EDT Got it. We will keep his tadalafil prescription going. documented in this encounter Plan of Treatment Upcoming Encounters Date Type Department Care Team (Late Contact Info) Description 10/19/2025 2:45 PM EDT Office Visit [facility] Urologic Surgery [place] [address] [facility] [address] [place] [phone] Bart Connell MD [address] [place] [address] [address] [place] [address] documented as of this encounter Visit Diagnoses Not on filedocumented in this encounter Care Teams Central Office Inspector Relationship Specialty Start Date End Date Morro Sanchez MD [address] [place] [phone] PCP - General Internal Medicine 04/24/21 documented as of this encounter
--- OUTSIDE RECORDS SUMMARY | 2025-04-03 17:25 | XMS_ITS | Encounter Summary ---
Author Organization [facility] Address [address] [place] [address] Care Team Providers Care A&P Technician Name Role Phone Morro Sanchez MD Primary Care Provider + [phone] Encounter Details Date Type Department Care Team (Late Contact Info) Description 12/15/2023 Scanned Document [facility] Urologic Surgery [place] [phone] Yordy Rogers MD [address] [facility] 2 [place] [address] Social History Tobacco Use Types Packs/Day Years [...] EDT Office Visit [facility] Urologic Surgery [address] [phone] Bart Connell MD [address] [place] [address] documented as of this encounter Visit Diagnoses Not on filedocumented in this encounter Care Teams A&P Technician Relationship Specialty Start Date End Date Morro Sanchez MD [address] [place] [address] PCP - General Internal Medicine 04/24/21 documented as of this encounter
--- OUTSIDE RECORDS SUMMARY | 2025-04-03 17:25 | XMS_ITS | Encounter Summary ---
Author Organization [facility] Address [address] [place] [address] Care Team Providers Care Photography Sales Associate Name Role Phone Morro Sanchez MD Primary Care Provider + [phone] Encounter Details Date Type Department Care Team (Late Contact Info) Description 11/21/2024 Scanned Document [facility] Urologic Surgery [place] [address] [phone] Bart Connell MD [address] [place] [address] Social History Tobacco Use Types Packs/Day Years [...] Description 10/19/2025 2:45 PM EDT Office Visit [facility] Urologic Surgery [address] [phone] Bart Connell MD [address] [place] [address] documented as of this encounter Visit Diagnoses Not on filedocumented in this encounter Care Teams Photography Sales Associate Relationship Specialty Start Date End Date Morro Sanchez MD [address] [place] [phone] PCP - General Internal Medicine 04/24/21 documented as of this encounter
== END 2025-04-03 13:45 | disposition home or self-care (01) ==
LOC: HO.BBR 13:44
PROVIDERS: Visit Provider Specialist
DX: Z13.89 Encounter for screening for other disorder (principal)